=== PATIENT | male | born 1950 | race Caucasian/White ===

== ENCOUNTER → 2017-03-29 | Outpatient (CLI) | payer OTHER ==
[~2017-03-29] VITALS: Ht 182.9 cm; Wt 130.2 kg
== END | disposition home or self-care (01) ==
LOC: Rad HDHVI 10:06
PROVIDERS: ATTEND Internal Medicine Cardiovascular Disease
DX: I25.2 Old myocardial infarction (principal); I25.10 Atherosclerotic heart disease of native coronary artery without angina pectoris; I10 Essential (primary) hypertension; E78.00 Pure hypercholesterolemia, unspecified; I25.5 Ischemic cardiomyopathy; E11.9 Type 2 diabetes mellitus without complications
CPT/HCPCS: 78452; 93017; 96374; A9500

== ENCOUNTER → 2018-01-14 | Outpatient (CLI) | payer OTHER | END | disposition home or self-care (01) | LOC: Rad HDHVI 11:04 | PROVIDERS: ATTEND Internal Medicine Cardiovascular Disease | DX: I20.0 Unstable angina (principal); R07.89 Other chest pain; R00.2 Palpitations | CPT/HCPCS: 93306 ==

== ENCOUNTER → 2018-01-31 | Outpatient (CLI) | payer OTHER ==
[~2018-01-31] VITALS: Ht 182.9 cm; Wt 128.4 kg
== END | disposition home or self-care (01) ==
LOC: Rad HDHVI 10:43
PROVIDERS: ATTEND Internal Medicine Cardiovascular Disease
DX: I20.0 Unstable angina (principal); E11.9 Type 2 diabetes mellitus without complications; R07.89 Other chest pain; R00.2 Palpitations
CPT/HCPCS: 78452; 93017; 96374; A9500

== ENCOUNTER → 2018-02-23 | Outpatient (CLI) | payer OTHER ==
[~2018-02-23] MED LIST: ACET-1158 PO; ASCO500T11 PO; ASPI325T4 PO; CARV3.1240 PO; CHOL50007 PO; DOCU-94 PO; DULA0.5I SC; EMPA1TAB3 PO; ENAL2.5T PO; ESOM20CA PO; EZET10TA6 PO; FOLI1TAB6 PO; GING250C2 PO; GLUC1CAP11 PO; GLUCTAB8 PO; INSUINJ18 SC; KETO2CRE4 TOP; MAGN400T5 PO; MECL-87 PO; MELO1TAB73 PO; METF-370 PO; NAPR220C PO; POM PO; POM TOP; PYRI200T3 PO; ROSU5TAB5 PO; SCOP1DIS4 TD; TRIATAB3 PO; VITATAB PO; [UNRECOGNIZED DRUG - CODE] PO
[2018-02-23 08:00] VITALS: BP 126/66
[2018-02-23 08:50] VITALS: BP 135/72
[2018-02-23 12:47] LABS: Basophils # (auto) 0 uL; Basophils % (auto) 0.6 % (0.0-2.0); Eosinophils # (auto) 0.1 uL; Eosinophils % (auto) 1.4 % (0.0-7.0); Hematocrit 47.7 % (41.0-53.0); Hemoglobin 16.3 g/dL (13.5-17.5); Lymphocytes # (auto) 1.3 uL; Lymphocytes % (auto) 18.9 % (10.0-50.0); Mean Corpuscular Hemoglobin 31.3 pg (28.0-32.0); Mean Corpuscular Hgb Conc. 34.1 g/dL (32.0-36.0); Mean Corpuscular Volume 91.9 fL (80.0-100.0); Monocytes # (auto) 0.6 uL; Monocytes % (auto) 8.8 % (0.0-12.0); Neutrophils # (auto) 4.8 uL; Neutrophils % (auto) 70.3 % (37.0-80.0); Nucleated Red Blood Cells % 0.2 %; Platelet Count (auto) 183 10^3/uL (140-450); Red Blood Cells 5.19 10^6/uL (4.5-5.90); Red Cell Distribution Width 13.9 % (11.8-14.3); White Blood Cell 6.8 10^3/uL (4.4-10.8)
[2018-02-23 13:01] LABS: INR 0.94 (0.9-1.15); Partial Thromboplastin Time 29.9 sec (23.78-33.04); Prothrombin Time 10.1 sec (9.27-12.13)
[2018-02-23 13:12] LABS: BUN/Creatinine Ratio 25.8; Calcium 8.6 mg/dL (8.5-10.1); Potassium 4.5 mmol/L (3.5-5.1)
== END | disposition home or self-care (01) ==
LOC: Rad HDHVI 08:13
PROVIDERS: ATTEND Internal Medicine Cardiovascular Disease
DX: Z01.818 Encounter for other preprocedural examination (principal); I70.0 Atherosclerosis of aorta; I10 Essential (primary) hypertension; D64.9 Anemia, unspecified; R79.1 Abnormal coagulation profile; R94.31 Abnormal electrocardiogram [ECG] [EKG]
CPT/HCPCS: 36415; 71046; 80048; 85025; 85610; 85730; 93005; G0463

== ENCOUNTER 2018-02-24 10:33 | Inpatient (IN) | payer OTHER ==
[~2018-02-24] VITALS: Ht 182.9 cm; Wt 128.6 kg
[2018-02-24] MEDS ORDERED: IODIXANOL 320MG/ML 100ML BTL IV ONE ×2 (11:05→11:44)
[2018-02-24] MEDS ORDERED: LIDOCAINE 2%HCL (LOCAL ANESTH.) INJ 20ML MDV ONE (11:05)
[2018-02-24] MEDS ORDERED: ANGIOMAX 250 MG VIAL IV ONE ×2 (11:13→12:07)
[2018-02-24] MEDS ORDERED: fentaNYL CITRATE 100 MCG/2 ML VL ONE (11:13)
[2018-02-24] MEDS ORDERED: MIDAZOLAM HCL 1MG/1ML-2 ML VIAL ONE (11:13)
[2018-02-24] MEDS ORDERED: SODIUM CHL 0.9% 50 ML ONE ×2 (11:14→12:07)
[2018-02-24] MEDS ORDERED: methylPREDNISolone SOD SUCC 125 MG/2 ML VL ONE (11:17)
[2018-02-24] MEDS ORDERED: diphenhdrAMINE HCL 50 MG/1 ML VL ONE (11:17)
[2018-02-24] MEDS ORDERED: VERAPAMIL 2.5MG/ML INJ 2ML VIAL IV ONE (11:17)
[2018-02-24] MEDS ORDERED: CLOPIDOGREL 300 MG TAB ONE (11:58)
[2018-02-24] MEDS ORDERED: ASPirin 325 MG TAB ONE (11:58)
[2018-02-24] MEDS ORDERED: ONDANSETRON HCL 4 MG/2 ML VIAL IV PRN (12:30)
[2018-02-24] MEDS ORDERED: NITROGLYCERIN 0.4 MG SL TAB SL PRN (12:30)
[2018-02-24] MEDS ORDERED: DEXTROSE (50%) 50ML SYRG IV PRN (12:30)
[2018-02-24] MEDS ORDERED: MORPHINE SULF INJ 2 MG/ML SYRINGE 1ML IV PRN (12:30)
[2018-02-24] MEDS ORDERED: HYDROcodone-ACET 5/325MG TAB PO PRN (12:30)
[2018-02-24] MEDS ORDERED: ACETAMINOPHEN 500 MG TAB PO PRN (12:30)
[2018-02-24 13:55] VITALS: BP_SYST 107; BP_SYST 120; BP_DIAS 65; BP_DIAS 67
[2018-02-24] MEDS ORDERED: INSULIN ASPART PROTAMINE SC SCH (14:00)
[2018-02-24] MEDS ORDERED: ASP SC SCH (14:00)
[2018-02-24 14:18] VITALS: BP 111/68
[2018-02-24 14:54] VITALS: BP 120/65
[2018-02-24 16:00] VITALS: BP 107/62
[2018-02-24] MEDS: ACCU-CHEK COMFORT CURVE STRIP VI SCH ×2 (17:06→21:33)
[2018-02-24] MEDS: InsuLIN REG 1unit/0.01ml Soln (100units/ml) SC SCH ×2 (17:38→21:33)
[2018-02-24] MEDS: DOCUSATE SOD 100 MG CAP PO SCH (21:16)
[2018-02-24] MEDS: CARVEDILOL 3.125 MG TAB PO SCH (21:17)
[2018-02-24] MEDS ORDERED: ATORVASTATIN 20 MG TAB PO SCH (22:00)
[2018-02-24 22:45] VITALS: BP 104/58
[2018-02-25 05:13] VITALS: BP 117/69
[2018-02-25] MEDS: DOCUSATE SOD 100 MG CAP PO SCH ×2 (06:46→14:00)
[2018-02-25] MEDS: InsuLIN REG 1unit/0.01ml Soln (100units/ml) SC SCH ×2 (06:53→11:30)
[2018-02-25] MEDS: ACCU-CHEK COMFORT CURVE STRIP VI SCH ×2 (06:55→11:46)
[2018-02-25 08:38] VITALS: BP 128/67
[2018-02-25] MEDS ORDERED: ENALAPRIL MALEATE 2.5 MG TAB PO SCH (10:00)
[2018-02-25] MEDS ORDERED: MECLIZINE HCL 25 MG TAB PO PRN (10:00)
[2018-02-25] MEDS ORDERED: MAGNESIUM OXIDE 400 MG TAB PO SCH (10:00)
[2018-02-25] MEDS ORDERED: FOLIC ACID 1 MG TAB PO SCH (10:00)
[2018-02-25] MEDS ORDERED: PANTOPRAZOLE 40 MG TAB PO SCH (10:00)
[2018-02-25] MEDS ORDERED: CLOPIDOGREL BISULFATE 75 MG TAB PO SCH (10:00)
[2018-02-25] MEDS ORDERED: Empagliflozin (Jardiance) 25 MG TAB PO SCH (10:00)
[2018-02-25] MEDS ORDERED: CHOLECALCIFEROL (VITD3) 1,000 UNIT TAB PO SCH (10:00)
[2018-02-25] MEDS ORDERED: ASPirin 81 mg TAB PO SCH (10:00)
[2018-02-25] MEDS ORDERED: TRIAMTERENE/HCTZ 37.5/25 MG CAP/TAB PO SCH (10:00)
[2018-02-25] MEDS ORDERED: ASCORBIC ACID 500 MG TAB PO SCH (10:00)
[2018-02-25] MEDS: CARVEDILOL 3.125 MG TAB PO SCH (10:18)
[2018-02-25 12:38] VITALS: BP 119/67
[2018-02-25] MEDS ORDERED: MORPHINE SULFATE 4 MG/ML SYR/VIAL IV PRN (16:00)
[2018-02-25 16:51] VITALS: BP 119/67
== END 2018-02-25 17:45 | disposition home or self-care (01) | DRG 247 ==
LOC: CATH 10:33 → TELE-CENTR 10:34
PROVIDERS: ADMIT Internal Medicine Cardiovascular Disease; ATTEND Internal Medicine Cardiovascular Disease
PROC: 027034Z Dilation of Coronary Artery, One Artery with Drug-eluting Intraluminal Device, Percutaneous Approach (ICD-10-PCS; principal; 2018-02-24)
PROC: 4A023N7 Measurement of Cardiac Sampling and Pressure, Left Heart, Percutaneous Approach (ICD-10-PCS; 2018-02-24)
PROC: B2111ZZ Fluoroscopy of Multiple Coronary Arteries using Low Osmolar Contrast (ICD-10-PCS; 2018-02-24)
PROC: 5A09357 Assistance with Respiratory Ventilation, Less than 24 Consecutive Hours, Continuous Positive Airway Pressure (ICD-10-PCS; 2018-02-24)
DX: I25.10 Atherosclerotic heart disease of native coronary artery without angina pectoris (principal); E11.9 Type 2 diabetes mellitus without complications; I10 Essential (primary) hypertension; E66.9 Obesity, unspecified; E78.5 Hyperlipidemia, unspecified; I25.2 Old myocardial infarction; Z87.891 Personal history of nicotine dependence; Z68.38 Body mass index [BMI] 38.0-38.9, adult
CPT/HCPCS: 82962; 92928; 93458; 94660; 99152; A6257; C1874; J1815; J2250; Q9967

== ENCOUNTER → 2018-04-01 | Outpatient (CLI) | payer OTHER | END | disposition home or self-care (01) | LOC: Rad HDHVI 16:04 | PROVIDERS: ATTEND Internal Medicine Cardiovascular Disease | DX: I20.0 Unstable angina (principal); R06.02 Shortness of breath | CPT/HCPCS: 93306 ==

== ENCOUNTER → 2018-07-27 | Outpatient (CLI) | payer OTHER ==
[~2018-07-27] VITALS: Ht 182.9 cm; Wt 126.1 kg
== END | disposition home or self-care (01) ==
LOC: Rad HDHVI 09:55
PROVIDERS: ATTEND Internal Medicine Cardiovascular Disease
DX: I20.0 Unstable angina (principal); E78.00 Pure hypercholesterolemia, unspecified; E11.9 Type 2 diabetes mellitus without complications
CPT/HCPCS: 78452; 93017; 96374; A9500

== ENCOUNTER → 2020-08-05 | Outpatient (CLI) | payer OTHER ==
[~2020-08-05] MED LIST changes: +CLOP75TA28 PO; -ENAL2.5T PO; +ENAL2.5T7 PO; +EZET10TA22 PO; -EZET10TA6 PO; +INSU100I33 SC; +INSU1INJ21 SC; +MAGN400T40 PO; -MAGN400T5 PO; -MECL-87 PO; +MECL25TA18 PO; +RANO500T2 PO; -SCOP1DIS4 TD; +SCOP1DIS9 TD; +SEMA2INJ2 SC
[2020-08-05 08:28] VITALS: BP 127/60
[2020-08-05 08:43] VITALS: BP 120/63
[2020-08-05 12:11] LABS: Basophils # (auto) 0 10 ^3/uL (0-0.2); Basophils % (auto) 0.4 % (0.0-2.0); Eosinophils # (auto) 0.2 10 ^3/uL (0-0.8); Eosinophils % (auto) 2.5 % (0.0-7.0); Hematocrit 47.6 % (41.0-53.0); Hemoglobin 16.2 g/dL (13.5-17.5); Lymphocytes # (auto) 1.6 10 ^3/uL (0.4-5.4); Mean Corpuscular Hemoglobin 30.6 pg (28.0-32.0); Mean Corpuscular Hgb Conc. 34.1 g/dL (32.0-36.0); Mean Corpuscular Volume 89.8 fL (80.0-100.0); Monocytes # (auto) 0.8 10 ^3/uL (0-1.3); Monocytes % (auto) 10.7 % (0.0-12.0); Neutrophils % (auto) 65.4 % (37.0-80.0); Nucleated Red Blood Cells % 0.2 %; Platelet Count (auto) 215 10^3/uL (140-450); Red Cell Distribution Width 14.3 % (11.8-14.3); White Blood Cell 7.6 10^3/uL (4.4-10.8)
[2020-08-05 12:24] LABS: INR 0.96 (0.9-1.15); Partial Thromboplastin Time 29.1 sec (23.0-31.2)
[2020-08-05 13:15] LABS: BUN/Creatinine Ratio 29.3; Calcium 9.2 mg/dL (8.5-10.1); Potassium 4.6 mmol/L (3.5-5.1)
== END | disposition home or self-care (01) ==
LOC: Rad HDHVI 08:14
PROVIDERS: ATTEND Internal Medicine Cardiovascular Disease
DX: Z01.812 Encounter for preprocedural laboratory examination (principal); R06.02 Shortness of breath; I25.10 Atherosclerotic heart disease of native coronary artery without angina pectoris
CPT/HCPCS: 36415; 71046; 80048; 85025; 85610; 85730; 93005; G0463

== ENCOUNTER 2020-08-08 07:02 | Day surgery (SDC) | payer OTHER ==
[~2020-08-08] VITALS: Ht 180.3 cm; Wt 124.7 kg
[~2020-08-08 07:02] MED LIST changes: -DOCU-94 PO; -DULA0.5I SC; -ESOM20CA PO; -GLUC1CAP11 PO; -INSUINJ18 SC; -MELO1TAB73 PO
[2020-08-08] MEDS ORDERED: LIDOCAINE 2%HCL (LOCAL ANESTH.) INJ 20ML MDV ONE (07:25)
[2020-08-08] MEDS ORDERED: IODIXANOL 320MG/ML 100ML BTL IV ONE (07:25)
[2020-08-08] MEDS ORDERED: fentaNYL CITRATE 100 MCG/2 ML VL ONE (09:10)
[2020-08-08] MEDS ORDERED: diphenhdrAMINE HCL 50 MG/1 ML VL ONE (09:10)
[2020-08-08] MEDS ORDERED: MIDAZOLAM HCL 1MG/1ML-2 ML VIAL ONE (09:10)
[2020-08-08] MEDS ORDERED: methylPREDNISolone SOD SUCC 125 MG/2 ML VL ONE (09:10)
[2020-08-08] MEDS ORDERED: ANGIOMAX 250 MG VIAL IV ONE (09:10)
[2020-08-08] MEDS ORDERED: IOHEXOL 350 MG/ML 100ML IJ ONE ×2 (09:11→09:46)
[2020-08-08] MEDS ORDERED: FAMOTIDINE (10MG/ML) 2ML VL IV ONE (09:11)
[2020-08-08] MEDS ORDERED: SODIUM CHL 0.9% 50 ML ONE (09:11)
== END 2020-08-08 13:45 | disposition home or self-care (01) ==
LOC: CATH 07:02
PROVIDERS: ATTEND Internal Medicine Cardiovascular Disease
DX: I25.10 Atherosclerotic heart disease of native coronary artery without angina pectoris (principal); I10 Essential (primary) hypertension; E78.5 Hyperlipidemia, unspecified; I25.2 Old myocardial infarction; I63.9 Cerebral infarction, unspecified; G47.30 Sleep apnea, unspecified; Z85.46 Personal history of malignant neoplasm of prostate; Z79.82 Long term (current) use of aspirin; Z20.822 Contact with and (suspected) exposure to COVID-19; Z98.890 Other specified postprocedural states; Z79.899 Other long term (current) drug therapy; Z95.5 Presence of coronary angioplasty implant and graft; Z87.891 Personal history of nicotine dependence; Z79.84 Long term (current) use of oral hypoglycemic drugs; Z91.041 Radiographic dye allergy status; Z68.38 Body mass index [BMI] 38.0-38.9, adult
CPT/HCPCS: 93458; C1760; C1769; C1887; C1894; C9600; J0583; J1200; J1644; J2250; J2930; J3010; J3490; J7030; Q9967; U0003; 99152; 99153

== ENCOUNTER → 2020-09-02 | Outpatient (CLI) | payer OTHER ==
[2020-09-02 10:44] VITALS: BP 127/69
[2020-09-02 11:14] VITALS: BP 126/67
== END | disposition home or self-care (01) ==
LOC: CHF HDHVI 09:55
PROVIDERS: ATTEND Internal Medicine Cardiovascular Disease
DX: I25.118 Atherosclerotic heart disease of native coronary artery with other forms of angina pectoris (principal); I50.23 Acute on chronic systolic (congestive) heart failure; E11.9 Type 2 diabetes mellitus without complications; Z95.5 Presence of coronary angioplasty implant and graft
CPT/HCPCS: G0166

== ENCOUNTER → 2020-09-04 | Outpatient (CLI) | payer OTHER ==
[2020-09-04 11:01] VITALS: BP 129/64
[2020-09-04 11:12] VITALS: BP 133/69
== END | disposition home or self-care (01) ==
LOC: CHF HDHVI 09:59
PROVIDERS: ATTEND Internal Medicine Cardiovascular Disease
DX: I25.118 Atherosclerotic heart disease of native coronary artery with other forms of angina pectoris (principal); I11.0 Hypertensive heart disease with heart failure; I50.23 Acute on chronic systolic (congestive) heart failure; E11.42 Type 2 diabetes mellitus with diabetic polyneuropathy; E78.5 Hyperlipidemia, unspecified; Z95.5 Presence of coronary angioplasty implant and graft; Z95.820 Peripheral vascular angioplasty status with implants and grafts
CPT/HCPCS: G0166

== ENCOUNTER → 2020-09-06 | Outpatient (CLI) | payer OTHER ==
[2020-09-06 10:24] VITALS: BP 141/71
[2020-09-06 11:11] VITALS: BP 135/73
== END | disposition home or self-care (01) ==
LOC: CHF HDHVI 09:52
PROVIDERS: ATTEND Internal Medicine Cardiovascular Disease
DX: I25.118 Atherosclerotic heart disease of native coronary artery with other forms of angina pectoris (principal); I50.23 Acute on chronic systolic (congestive) heart failure; E11.9 Type 2 diabetes mellitus without complications; Z98.61 Coronary angioplasty status
CPT/HCPCS: G0166

== ENCOUNTER → 2020-09-09 | Outpatient (CLI) | payer OTHER ==
[2020-09-09 10:40] VITALS: BP 131/67
[2020-09-09 11:17] VITALS: BP 133/68
== END | disposition home or self-care (01) ==
LOC: Rad HDHVI 10:06
PROVIDERS: ATTEND Internal Medicine Cardiovascular Disease
DX: I25.118 Atherosclerotic heart disease of native coronary artery with other forms of angina pectoris (principal); I11.0 Hypertensive heart disease with heart failure; I50.23 Acute on chronic systolic (congestive) heart failure; E11.21 Type 2 diabetes mellitus with diabetic nephropathy; E11.42 Type 2 diabetes mellitus with diabetic polyneuropathy; E78.5 Hyperlipidemia, unspecified; Z95.5 Presence of coronary angioplasty implant and graft
CPT/HCPCS: G0166

== ENCOUNTER → 2020-09-11 | Outpatient (CLI) | payer OTHER ==
[2020-09-11 10:45] VITALS: BP 139/76
[2020-09-11 10:58] VITALS: BP 137/73
== END | disposition home or self-care (01) ==
LOC: Rad HDHVI 09:53
PROVIDERS: ATTEND Internal Medicine Cardiovascular Disease
DX: I25.118 Atherosclerotic heart disease of native coronary artery with other forms of angina pectoris (principal); I11.0 Hypertensive heart disease with heart failure; I50.23 Acute on chronic systolic (congestive) heart failure; I25.5 Ischemic cardiomyopathy; E11.21 Type 2 diabetes mellitus with diabetic nephropathy; E11.42 Type 2 diabetes mellitus with diabetic polyneuropathy; E78.5 Hyperlipidemia, unspecified; Z95.820 Peripheral vascular angioplasty status with implants and grafts; Z95.0 Presence of cardiac pacemaker
CPT/HCPCS: G0166

== ENCOUNTER → 2020-09-18 | Outpatient (CLI) | payer OTHER ==
[2020-09-18 10:35] VITALS: BP 125/66
[2020-09-18 11:09] VITALS: BP 143/73
== END | disposition home or self-care (01) ==
LOC: CHF HDHVI 10:02
PROVIDERS: ATTEND Internal Medicine Cardiovascular Disease
DX: I25.118 Atherosclerotic heart disease of native coronary artery with other forms of angina pectoris (principal); I11.0 Hypertensive heart disease with heart failure; I50.23 Acute on chronic systolic (congestive) heart failure; I25.5 Ischemic cardiomyopathy; E11.21 Type 2 diabetes mellitus with diabetic nephropathy; E11.42 Type 2 diabetes mellitus with diabetic polyneuropathy; E78.5 Hyperlipidemia, unspecified; Z95.5 Presence of coronary angioplasty implant and graft; Z95.820 Peripheral vascular angioplasty status with implants and grafts
CPT/HCPCS: G0166

== ENCOUNTER → 2020-09-20 | Outpatient (CLI) | payer OTHER ==
[2020-09-20 10:53] VITALS: BP 130/84
[2020-09-20 11:06] VITALS: BP 140/74
== END | disposition home or self-care (01) ==
LOC: CHF HDHVI 09:55
PROVIDERS: ATTEND Internal Medicine Cardiovascular Disease
DX: I25.118 Atherosclerotic heart disease of native coronary artery with other forms of angina pectoris (principal); I11.0 Hypertensive heart disease with heart failure; I50.23 Acute on chronic systolic (congestive) heart failure; I25.5 Ischemic cardiomyopathy; E11.21 Type 2 diabetes mellitus with diabetic nephropathy; E11.42 Type 2 diabetes mellitus with diabetic polyneuropathy; E78.5 Hyperlipidemia, unspecified; Z95.820 Peripheral vascular angioplasty status with implants and grafts; Z95.5 Presence of coronary angioplasty implant and graft
CPT/HCPCS: G0166

== ENCOUNTER → 2020-09-23 | Outpatient (CLI) | payer OTHER ==
[2020-09-23 10:34] VITALS: BP 133/70
[2020-09-23 11:16] VITALS: BP 131/73
== END | disposition home or self-care (01) ==
LOC: CHF HDHVI 10:04
PROVIDERS: ATTEND Internal Medicine Cardiovascular Disease
DX: I25.118 Atherosclerotic heart disease of native coronary artery with other forms of angina pectoris (principal); I11.0 Hypertensive heart disease with heart failure; I50.23 Acute on chronic systolic (congestive) heart failure; E11.42 Type 2 diabetes mellitus with diabetic polyneuropathy; E78.5 Hyperlipidemia, unspecified; Z95.820 Peripheral vascular angioplasty status with implants and grafts; Z95.5 Presence of coronary angioplasty implant and graft
CPT/HCPCS: G0166

== ENCOUNTER → 2020-09-25 | Outpatient (CLI) | payer OTHER ==
[2020-09-25 10:33] VITALS: BP 130/70
[2020-09-25 11:06] VITALS: BP 134/70
== END | disposition home or self-care (01) ==
LOC: CHF HDHVI 09:57
PROVIDERS: ATTEND Internal Medicine Cardiovascular Disease
DX: I25.118 Atherosclerotic heart disease of native coronary artery with other forms of angina pectoris (principal); I11.0 Hypertensive heart disease with heart failure; I50.23 Acute on chronic systolic (congestive) heart failure; E78.5 Hyperlipidemia, unspecified; E11.42 Type 2 diabetes mellitus with diabetic polyneuropathy; Z95.5 Presence of coronary angioplasty implant and graft; Z95.820 Peripheral vascular angioplasty status with implants and grafts
CPT/HCPCS: G0166

== ENCOUNTER → 2020-09-30 | Outpatient (CLI) | payer OTHER ==
[2020-09-30 10:43] VITALS: BP 137/71
[2020-09-30 10:56] VITALS: BP 134/77
== END | disposition home or self-care (01) ==
LOC: CHF HDHVI 10:01
PROVIDERS: ATTEND Internal Medicine Cardiovascular Disease
DX: I25.118 Atherosclerotic heart disease of native coronary artery with other forms of angina pectoris (principal); I50.23 Acute on chronic systolic (congestive) heart failure
CPT/HCPCS: G0166

== ENCOUNTER → 2020-10-02 | Outpatient (CLI) | payer OTHER ==
[2020-10-02 10:33] VITALS: BP 124/64
[2020-10-02 11:02] VITALS: BP 128/74
== END | disposition home or self-care (01) ==
LOC: CHF HDHVI 10:00
PROVIDERS: ATTEND Internal Medicine Cardiovascular Disease
DX: I25.118 Atherosclerotic heart disease of native coronary artery with other forms of angina pectoris (principal); I11.0 Hypertensive heart disease with heart failure; I50.23 Acute on chronic systolic (congestive) heart failure; E11.42 Type 2 diabetes mellitus with diabetic polyneuropathy; E11.21 Type 2 diabetes mellitus with diabetic nephropathy; E78.5 Hyperlipidemia, unspecified; Z95.5 Presence of coronary angioplasty implant and graft
CPT/HCPCS: G0166

== ENCOUNTER → 2020-10-04 | Outpatient (CLI) | payer OTHER ==
[2020-10-04 11:01] VITALS: BP 132/62
[2020-10-04 11:12] VITALS: BP 125/68
== END | disposition home or self-care (01) ==
LOC: CHF HDHVI 10:15
PROVIDERS: ATTEND Internal Medicine Cardiovascular Disease
DX: I25.118 Atherosclerotic heart disease of native coronary artery with other forms of angina pectoris (principal); I11.0 Hypertensive heart disease with heart failure; I50.23 Acute on chronic systolic (congestive) heart failure; E11.42 Type 2 diabetes mellitus with diabetic polyneuropathy; E78.5 Hyperlipidemia, unspecified; Z95.5 Presence of coronary angioplasty implant and graft
CPT/HCPCS: G0166

== ENCOUNTER → 2020-10-07 | Outpatient (CLI) | payer OTHER ==
[2020-10-07 10:41] VITALS: BP 131/63
[2020-10-07 11:00] VITALS: BP 144/73
== END | disposition home or self-care (01) ==
LOC: CHF HDHVI 10:03
PROVIDERS: ATTEND Internal Medicine Cardiovascular Disease
DX: I25.118 Atherosclerotic heart disease of native coronary artery with other forms of angina pectoris (principal); I11.0 Hypertensive heart disease with heart failure; I50.23 Acute on chronic systolic (congestive) heart failure; E11.42 Type 2 diabetes mellitus with diabetic polyneuropathy; E11.21 Type 2 diabetes mellitus with diabetic nephropathy; Z95.5 Presence of coronary angioplasty implant and graft
CPT/HCPCS: G0166

== ENCOUNTER → 2020-10-10 | Outpatient (CLI) | payer OTHER ==
[2020-10-10 15:11] VITALS: BP 153/70
[2020-10-10 15:42] VITALS: BP 141/72
== END | disposition home or self-care (01) ==
LOC: CHF HDHVI 14:44
PROVIDERS: ATTEND Internal Medicine Cardiovascular Disease
DX: I25.118 Atherosclerotic heart disease of native coronary artery with other forms of angina pectoris (principal); I11.0 Hypertensive heart disease with heart failure; I50.23 Acute on chronic systolic (congestive) heart failure; E11.42 Type 2 diabetes mellitus with diabetic polyneuropathy; E78.5 Hyperlipidemia, unspecified; Z95.5 Presence of coronary angioplasty implant and graft
CPT/HCPCS: G0166

== ENCOUNTER → 2020-10-11 | Outpatient (CLI) | payer OTHER ==
[2020-10-11 11:03] VITALS: BP 143/75
[2020-10-11 11:38] VITALS: BP 136/76
== END | disposition home or self-care (01) ==
LOC: CHF HDHVI 10:38
PROVIDERS: ATTEND Internal Medicine Cardiovascular Disease
DX: I25.118 Atherosclerotic heart disease of native coronary artery with other forms of angina pectoris (principal); I50.23 Acute on chronic systolic (congestive) heart failure
CPT/HCPCS: G0166

== ENCOUNTER → 2020-10-14 | Outpatient (CLI) | payer OTHER ==
[2020-10-14 10:27] VITALS: BP 139/64
[2020-10-14 10:54] VITALS: BP 132/69
== END | disposition home or self-care (01) ==
LOC: CHF HDHVI 09:55
PROVIDERS: ATTEND Internal Medicine Cardiovascular Disease
DX: I25.118 Atherosclerotic heart disease of native coronary artery with other forms of angina pectoris (principal); I50.23 Acute on chronic systolic (congestive) heart failure
CPT/HCPCS: G0166

== ENCOUNTER → 2020-10-15 | Outpatient (CLI) | payer OTHER ==
[2020-10-15 15:07] VITALS: BP 142/70
[2020-10-15 15:35] VITALS: BP 138/70
== END | disposition home or self-care (01) ==
LOC: CHF HDHVI 14:31
PROVIDERS: ATTEND Internal Medicine Cardiovascular Disease
DX: I25.118 Atherosclerotic heart disease of native coronary artery with other forms of angina pectoris (principal); I50.23 Acute on chronic systolic (congestive) heart failure
CPT/HCPCS: G0166

== ENCOUNTER → 2020-10-23 | Outpatient (CLI) | payer OTHER ==
[2020-10-23 11:11] VITALS: BP 141/66
[2020-10-23 11:38] VITALS: BP 137/67
== END | disposition home or self-care (01) ==
LOC: CHF HDHVI 10:40
PROVIDERS: ATTEND Internal Medicine Cardiovascular Disease
DX: I25.118 Atherosclerotic heart disease of native coronary artery with other forms of angina pectoris (principal); I11.0 Hypertensive heart disease with heart failure; I50.23 Acute on chronic systolic (congestive) heart failure; E11.21 Type 2 diabetes mellitus with diabetic nephropathy; E11.42 Type 2 diabetes mellitus with diabetic polyneuropathy; I25.5 Ischemic cardiomyopathy; E78.5 Hyperlipidemia, unspecified; Z95.5 Presence of coronary angioplasty implant and graft; Z95.820 Peripheral vascular angioplasty status with implants and grafts
CPT/HCPCS: G0166

== ENCOUNTER → 2020-10-24 | Outpatient (CLI) | payer OTHER ==
[2020-10-24 14:38] VITALS: BP 146/69
[2020-10-24 15:11] VITALS: BP 143/71
== END | disposition home or self-care (01) ==
LOC: CHF HDHVI 14:05
PROVIDERS: ATTEND Internal Medicine Cardiovascular Disease
DX: I25.118 Atherosclerotic heart disease of native coronary artery with other forms of angina pectoris (principal); I11.0 Hypertensive heart disease with heart failure; I50.23 Acute on chronic systolic (congestive) heart failure; I25.5 Ischemic cardiomyopathy; E11.21 Type 2 diabetes mellitus with diabetic nephropathy; E11.42 Type 2 diabetes mellitus with diabetic polyneuropathy; E78.5 Hyperlipidemia, unspecified; Z95.5 Presence of coronary angioplasty implant and graft; Z95.820 Peripheral vascular angioplasty status with implants and grafts
CPT/HCPCS: G0166

== ENCOUNTER → 2020-10-25 | Outpatient (CLI) | payer OTHER ==
[2020-10-25 11:07] VITALS: BP 143/73
[2020-10-25 11:40] VITALS: BP 140/73
[2020-10-25 11:54] VITALS: BP 140/73
== END | disposition home or self-care (01) ==
LOC: CHF HDHVI 10:23
PROVIDERS: ATTEND Internal Medicine Cardiovascular Disease
DX: I25.118 Atherosclerotic heart disease of native coronary artery with other forms of angina pectoris (principal); I11.0 Hypertensive heart disease with heart failure; I50.23 Acute on chronic systolic (congestive) heart failure; I25.5 Ischemic cardiomyopathy; E11.42 Type 2 diabetes mellitus with diabetic polyneuropathy; E11.21 Type 2 diabetes mellitus with diabetic nephropathy; E78.5 Hyperlipidemia, unspecified; Z95.5 Presence of coronary angioplasty implant and graft
CPT/HCPCS: G0166

== ENCOUNTER → 2020-10-30 | Outpatient (CLI) | payer OTHER ==
[2020-10-30 10:48] VITALS: BP 129/72
[2020-10-30 11:16] VITALS: BP 137/69
== END | disposition home or self-care (01) ==
LOC: CHF HDHVI 10:08
PROVIDERS: ATTEND Internal Medicine Cardiovascular Disease
DX: I25.118 Atherosclerotic heart disease of native coronary artery with other forms of angina pectoris (principal); I11.0 Hypertensive heart disease with heart failure; I50.23 Acute on chronic systolic (congestive) heart failure; I25.5 Ischemic cardiomyopathy; E11.42 Type 2 diabetes mellitus with diabetic polyneuropathy; E11.21 Type 2 diabetes mellitus with diabetic nephropathy; E78.5 Hyperlipidemia, unspecified; Z95.820 Peripheral vascular angioplasty status with implants and grafts; Z95.5 Presence of coronary angioplasty implant and graft
CPT/HCPCS: G0166

== ENCOUNTER → 2020-11-07 | Outpatient (CLI) | payer OTHER ==
[2020-11-07 16:11] VITALS: BP 140/65
[2020-11-07 16:17] VITALS: BP 156/74
== END | disposition home or self-care (01) ==
LOC: CHF HDHVI 14:43
PROVIDERS: ATTEND Internal Medicine Cardiovascular Disease
DX: I25.118 Atherosclerotic heart disease of native coronary artery with other forms of angina pectoris (principal); I50.23 Acute on chronic systolic (congestive) heart failure
CPT/HCPCS: G0166

== ENCOUNTER → 2020-11-08 | Outpatient (CLI) | payer OTHER ==
[2020-11-08 11:02] VITALS: BP 127/64
[2020-11-08 11:34] VITALS: BP 134/66
== END | disposition home or self-care (01) ==
LOC: CHF HDHVI 10:21
PROVIDERS: ATTEND Internal Medicine Cardiovascular Disease
DX: I25.118 Atherosclerotic heart disease of native coronary artery with other forms of angina pectoris (principal); I50.23 Acute on chronic systolic (congestive) heart failure
CPT/HCPCS: G0166

== ENCOUNTER → 2020-11-12 | Outpatient (CLI) | payer OTHER ==
[2020-11-12 16:18] VITALS: BP 141/70
[2020-11-12 16:25] VITALS: BP 136/79
== END | disposition home or self-care (01) ==
LOC: CHF HDHVI 14:26
PROVIDERS: ATTEND Internal Medicine Cardiovascular Disease
DX: I25.118 Atherosclerotic heart disease of native coronary artery with other forms of angina pectoris (principal); I50.23 Acute on chronic systolic (congestive) heart failure
CPT/HCPCS: G0166

== ENCOUNTER → 2020-11-14 | Outpatient (CLI) | payer OTHER ==
[2020-11-14 16:19] VITALS: BP 136/67
[2020-11-14 16:28] VITALS: BP 131/71
== END | disposition home or self-care (01) ==
LOC: CHF HDHVI 14:54
PROVIDERS: ATTEND Internal Medicine Cardiovascular Disease
DX: I25.118 Atherosclerotic heart disease of native coronary artery with other forms of angina pectoris (principal); I50.23 Acute on chronic systolic (congestive) heart failure
CPT/HCPCS: G0166

== ENCOUNTER → 2022-01-26 | Outpatient (CLI) | payer OTHER ==
[~2022-01-26] VITALS: Ht 182.9 cm; Wt 122.9 kg
== END | disposition home or self-care (01) ==
LOC: Rad HDHVI 07:51
PROVIDERS: ATTEND Internal Medicine Cardiovascular Disease
DX: I25.10 Atherosclerotic heart disease of native coronary artery without angina pectoris (principal); I11.0 Hypertensive heart disease with heart failure; I50.23 Acute on chronic systolic (congestive) heart failure; R07.9 Chest pain, unspecified; I25.5 Ischemic cardiomyopathy; E78.5 Hyperlipidemia, unspecified; R06.02 Shortness of breath; E11.9 Type 2 diabetes mellitus without complications; E66.9 Obesity, unspecified
CPT/HCPCS: 78452; 93017; 96374; A9500

== ENCOUNTER 2022-02-12 16:39 | Inpatient (IN) | payer MEDICARE, OTHER ==
[~2022-02-12] VITALS: Ht 188 cm; Wt 124.6 kg
[2022-02-12 17:50] LABS: Basophils # (auto) 0 10 ^3/uL (0-0.2); Basophils % (auto) 0.6 % (0.0-2.0); Eosinophils # (auto) 0.2 10 ^3/uL (0-0.8); Eosinophils % (auto) 2.2 % (0.0-7.0); Hematocrit 51.9 % (41.0-53.0); Hemoglobin 16.9 g/dL (13.5-17.5); Lymphocytes # (auto) 1.9 10 ^3/uL (0.4-5.4); Lymphocytes % (auto) 24.2 % (10.0-50.0); Mean Corpuscular Hemoglobin 29.6 pg (28.0-32.0); Mean Corpuscular Hgb Conc. 32.6 g/dL (32.0-36.0); Mean Corpuscular Volume 90.7 fL (80.0-100.0); Monocytes # (auto) 0.8 10 ^3/uL (0-1.3); Monocytes % (auto) 9.5 % (0.0-12.0); Neutrophils # (auto) 5.1 10 ^3/uL (1.6-8.6); Neutrophils % (auto) 63.5 % (37.0-80.0); Nucleated Red Blood Cells % 0.1 %; Red Blood Cells 5.72 10^6/uL (4.5-5.90); Red Cell Distribution Width 14.1 % (11.8-14.3)
[2022-02-12 18:07] LABS: Albumin 3.9 g/dL (3.4-5.0); BUN/Creatinine Ratio 22.6; Calcium 8.6 mg/dL (8.5-10.1); Potassium 4.5 mmol/L (3.5-5.1)
[2022-02-12 18:10] LABS: Bilirubin, Total 0.4 mg/dL (0.2-1.0)
[2022-02-12] MEDS ORDERED: ASPirin 325 MG TAB PO ONE (18:45)
[2022-02-12] MEDS ORDERED: ACETAMINOPHEN 325 MG TAB PO PRN (19:45)
[2022-02-12] MEDS ORDERED: DEXTROSE (50%) 50ML SYRG IV PRN (19:45)
[2022-02-12] MEDS: InsuLIN REG 1unit/0.01ml Soln (100units/ml) SC SCH (22:00)
[2022-02-12] MEDS: ISOSORBIDE MONONITRATE ER 60 MG TAB PO SCH (22:01)
[2022-02-12] MEDS: CARVEDILOL 3.125 MG TAB PO SCH (22:02)
[2022-02-12] MEDS: MAGNESIUM OXIDE 400 MG TAB PO SCH (22:02)
[2022-02-12] MEDS: ENALAPRIL MALEATE 10 MG TAB PO SCH (22:02)
[2022-02-12] MEDS: ACCU-CHEK COMFORT CURVE STRIP VI SCH (22:02)
[2022-02-12] MEDS: INSULIN LANTUS (GLARGINE) 1 /0.01ml (100units/ml) SC SCH (22:04)
[2022-02-13] VITALS (8 sets, daily range): BP systolic 97–115; BP diastolic 46–72
[2022-02-13 06:02] LABS: Urine Bacteria NONE SEEN /hpf (None Seen); Urine Blood Negative /uL (Negative); Urine Specific Gravity 1.024 (1.001-1.035); Urine WBC 1 /hpf (0 - 3)
[2022-02-13 06:04] LABS: Alcohol, Urine < 3.0 mg/dL (0-10); Amphetamine Screen, Urine NEGATIVE (NEGATIVE); Barbiturate Scree,Urine NEGATIVE (NEGATIVE); Benzodiazephine Screen, Urine NEGATIVE (NEGATIVE); Cannabinoid Screen, Urine NEGATIVE (NEGATIVE); Cocaine Screen, Urine NEGATIVE (NEGATIVE); Opiate Scree,Urine NEGATIVE (NEGATIVE); Phencyclidine Screen, Urine NEGATIVE (NEGATIVE)
[2022-02-13] MEDS: InsuLIN REG 1unit/0.01ml Soln (100units/ml) SC SCH ×4 (07:00→22:02)
[2022-02-13] MEDS: INSULIN LANTUS (GLARGINE) 1 /0.01ml (100units/ml) SC SCH ×2 (07:00→22:03)
[2022-02-13] MEDS: ACCU-CHEK COMFORT CURVE STRIP VI SCH ×4 (07:00→21:57)
[2022-02-13] MEDS: ISOSORBIDE MONONITRATE ER 60 MG TAB PO SCH ×2 (09:06→22:00)
[2022-02-13] MEDS: DAPAGLIFLOZIN 5 MG TAB PO SCH (09:07)
[2022-02-13] MEDS: ENALAPRIL MALEATE 10 MG TAB PO SCH ×2 (09:07→22:00)
[2022-02-13] MEDS: MAGNESIUM OXIDE 400 MG TAB PO SCH ×2 (09:07→22:04)
[2022-02-13] MEDS: CARVEDILOL 3.125 MG TAB PO SCH ×2 (09:07→22:00)
[2022-02-13] MEDS: ATORVASTATIN 20 MG TAB PO SCH (09:07)
[2022-02-13] MEDS ORDERED: CLOPIDOGREL BISULFATE 75 MG TAB PO SCH (10:00)
[2022-02-13 10:09] LABS: INR 1.02 (0.9-1.15); Partial Thromboplastin Time 27.5 sec (24.6-33.4)
[2022-02-13] MEDS ORDERED: LIDOCAINE 2%HCL (LOCAL ANESTH.) INJ 20ML MDV ONE (14:52)
[2022-02-13] MEDS ORDERED: IOHEXOL 350 MG/ML 100ML IJ ONE ×2 (14:52→15:36)
[2022-02-13] MEDS ORDERED: fentaNYL CITRATE 100 MCG/2 ML VL ONE (14:58)
[2022-02-13] MEDS ORDERED: MIDAZOLAM HCL 2MG/2ML 2ml VIAL (1mg/ml) ONE (14:58)
[2022-02-13] MEDS ORDERED: ANGIOMAX 250 MG VIAL IV ONE ×2 (14:58→15:34)
[2022-02-13] MEDS ORDERED: SODIUM CHL 0.9% 50 ML ONE ×2 (14:58→15:34)
[2022-02-13] MEDS ORDERED: methylPREDNISolone SOD SUCC 125 MG/2 ML VL ONE (14:59)
[2022-02-13] MEDS ORDERED: ATROPINE SULF 1 MG/10ml SYR ONE (15:12)
[2022-02-13] MEDS ORDERED: DOPamine 1600MCG/ML D5W 0 ML IV ONE (15:20)
[2022-02-13] MEDS ORDERED: TICAGRELOR 90 MG TAB ONE (15:45)
[2022-02-13] MEDS: TICAGRELOR 90 MG TAB PO SCH (22:21)
[2022-02-14 05:00] VITALS: BP 127/82
[2022-02-14] MEDS: ACCU-CHEK COMFORT CURVE STRIP VI SCH ×2 (06:16→11:53)
[2022-02-14] MEDS: InsuLIN REG 1unit/0.01ml Soln (100units/ml) SC SCH ×2 (06:18→11:50)
[2022-02-14] MEDS: INSULIN LANTUS (GLARGINE) 1 /0.01ml (100units/ml) SC SCH (06:20)
[2022-02-14 08:30] VITALS: BP 138/69
[2022-02-14] MEDS: TICAGRELOR 90 MG TAB PO SCH (09:04)
[2022-02-14] MEDS: MAGNESIUM OXIDE 400 MG TAB PO SCH (09:05)
[2022-02-14] MEDS: ISOSORBIDE MONONITRATE ER 60 MG TAB PO SCH (09:05)
[2022-02-14] MEDS: DAPAGLIFLOZIN 5 MG TAB PO SCH (09:05)
[2022-02-14] MEDS: CARVEDILOL 3.125 MG TAB PO SCH (09:05)
[2022-02-14] MEDS: ATORVASTATIN 20 MG TAB PO SCH (09:07)
[2022-02-14] MEDS: ENALAPRIL MALEATE 10 MG TAB PO SCH (09:07)
[2022-02-14 12:30] VITALS: BP 124/61
== END 2022-02-14 12:52 | disposition home or self-care (01) | DRG 246 ==
LOC: ER 16:39 → TELE 19:55 → TELE-EAST 02-13 17:08
PROVIDERS: ADMIT Internal Medicine Cardiovascular Disease; ATTEND Internal Medicine Cardiovascular Disease
PROC: 4A023N7 Measurement of Cardiac Sampling and Pressure, Left Heart, Percutaneous Approach (ICD-10-PCS; principal; 2022-02-13)
PROC: 027237Z Dilation of Coronary Artery, Three Arteries with Four or More Drug-eluting Intraluminal Devices, Percutaneous Approach (ICD-10-PCS; 2022-02-13)
PROC: B2111ZZ Fluoroscopy of Multiple Coronary Arteries using Low Osmolar Contrast (ICD-10-PCS; 2022-02-13)
PROC: B2151ZZ Fluoroscopy of Left Heart using Low Osmolar Contrast (ICD-10-PCS; 2022-02-13)
PROC: B240ZZ3 Ultrasonography of Single Coronary Artery, Intravascular (ICD-10-PCS; 2022-02-13)
DX: I21.4 Non-ST elevation (NSTEMI) myocardial infarction (principal); I50.23 Acute on chronic systolic (congestive) heart failure; E11.21 Type 2 diabetes mellitus with diabetic nephropathy; Z20.822 Contact with and (suspected) exposure to COVID-19; E11.319 Type 2 diabetes mellitus with unspecified diabetic retinopathy without macular edema; E11.40 Type 2 diabetes mellitus with diabetic neuropathy, unspecified; I11.0 Hypertensive heart disease with heart failure; I25.10 Atherosclerotic heart disease of native coronary artery without angina pectoris; I25.5 Ischemic cardiomyopathy; J44.9 Chronic obstructive pulmonary disease, unspecified; Z79.01 Long term (current) use of anticoagulants; Z88.8 Allergy status to other drugs, medicaments and biological substances
CPT/HCPCS: 36415; 71045; 80053; 80307; 81001; 82962; 84484; 85025; 85610; 85730; 87086; 92928; 92978; 93005; 93458; 96372; 99152; 99153; 99291; C1874; G0378; J1815; J2250

== ENCOUNTER → 2022-05-19 | Outpatient (CLI) | payer OTHER | END | disposition home or self-care (01) | LOC: Rad HDHVI 10:58 | PROVIDERS: ATTEND Internal Medicine Cardiovascular Disease | DX: I08.0 Rheumatic disorders of both mitral and aortic valves (principal); R06.02 Shortness of breath; I11.9 Hypertensive heart disease without heart failure | CPT/HCPCS: 93306 ==

== ENCOUNTER → 2022-12-01 | Outpatient (CLI) | payer OTHER ==
[~2022-12-01] MED LIST changes: -ACET-1158 PO; +ACET500T58 PO; +ENAL1TAB42 PO; -ENAL2.5T7 PO; +FOLI-119 PO; -FOLI1TAB6 PO; +MECL1TAB32 PO; -MECL25TA18 PO
== END | disposition home or self-care (01) ==
LOC: Rad HDHVI 09:01
PROVIDERS: ATTEND Internal Medicine Cardiovascular Disease
DX: I08.3 Combined rheumatic disorders of mitral, aortic and tricuspid valves (principal); I10 Essential (primary) hypertension; R06.02 Shortness of breath
CPT/HCPCS: 93306

== ENCOUNTER → 2023-06-08 | Outpatient (CLI) | payer OTHER ==
[2023-06-08 15:44] VITALS: BP 126/71; PULSE 71
[2023-06-08 15:45] VITALS: BP 119/69; PULSE 75
== END | disposition home or self-care (01) ==
LOC: CHF HDHVI 09:44
PROVIDERS: ATTEND Internal Medicine Cardiovascular Disease
DX: I11.0 Hypertensive heart disease with heart failure (principal); I50.43 Acute on chronic combined systolic (congestive) and diastolic (congestive) heart failure; I25.118 Atherosclerotic heart disease of native coronary artery with other forms of angina pectoris; E78.00 Pure hypercholesterolemia, unspecified; Z98.61 Coronary angioplasty status
CPT/HCPCS: G0166

== ENCOUNTER → 2023-06-09 | Outpatient (CLI) | payer OTHER ==
[2023-06-09 16:19] VITALS: BP 126/71; PULSE 80
[2023-06-09 16:20] VITALS: BP 119/68; PULSE 71
== END | disposition home or self-care (01) ==
LOC: CHF HDHVI 14:22
PROVIDERS: ATTEND Internal Medicine Cardiovascular Disease
DX: I11.0 Hypertensive heart disease with heart failure (principal); I50.43 Acute on chronic combined systolic (congestive) and diastolic (congestive) heart failure; I25.118 Atherosclerotic heart disease of native coronary artery with other forms of angina pectoris; E78.00 Pure hypercholesterolemia, unspecified; Z98.61 Coronary angioplasty status
CPT/HCPCS: G0166

== ENCOUNTER → 2023-06-11 | Outpatient (CLI) | payer OTHER ==
[2023-06-11 11:34] VITALS: BP 130/76; PULSE 79
[2023-06-11 11:35] VITALS: BP 131/84; PULSE 81
== END | disposition home or self-care (01) ==
LOC: CHF HDHVI 10:02
PROVIDERS: ATTEND Internal Medicine Cardiovascular Disease
DX: I25.118 Atherosclerotic heart disease of native coronary artery with other forms of angina pectoris (principal); I11.0 Hypertensive heart disease with heart failure; I50.43 Acute on chronic combined systolic (congestive) and diastolic (congestive) heart failure; E78.00 Pure hypercholesterolemia, unspecified; Z98.61 Coronary angioplasty status; Z79.82 Long term (current) use of aspirin; Z79.899 Other long term (current) drug therapy
CPT/HCPCS: G0166

== ENCOUNTER → 2023-06-17 | Outpatient (CLI) | payer OTHER ==
[2023-06-17 15:22] VITALS: BP 129/76; PULSE 79
[2023-06-17 15:23] VITALS: BP 119/69; PULSE 84
== END | disposition home or self-care (01) ==
LOC: CHF HDHVI 13:04
PROVIDERS: ATTEND Internal Medicine Cardiovascular Disease
DX: I25.118 Atherosclerotic heart disease of native coronary artery with other forms of angina pectoris (principal); I11.0 Hypertensive heart disease with heart failure; I50.43 Acute on chronic combined systolic (congestive) and diastolic (congestive) heart failure; E78.00 Pure hypercholesterolemia, unspecified; Z98.61 Coronary angioplasty status
CPT/HCPCS: G0166

== ENCOUNTER → 2023-06-23 | Outpatient (CLI) | payer OTHER ==
[2023-06-23 13:13] VITALS: BP 128/77; PULSE 75
[2023-06-23 13:14] VITALS: BP 123/86; PULSE 77
== END | disposition home or self-care (01) ==
LOC: CHF HDHVI 10:15
PROVIDERS: ATTEND Internal Medicine Cardiovascular Disease
DX: I25.118 Atherosclerotic heart disease of native coronary artery with other forms of angina pectoris (principal); I11.0 Hypertensive heart disease with heart failure; I50.43 Acute on chronic combined systolic (congestive) and diastolic (congestive) heart failure; E78.00 Pure hypercholesterolemia, unspecified; Z98.61 Coronary angioplasty status; Z79.899 Other long term (current) drug therapy
CPT/HCPCS: G0166

== ENCOUNTER → 2023-06-24 | Outpatient (CLI) | payer OTHER ==
[2023-06-24 15:10] VITALS: BP 126/81; PULSE 86
[2023-06-24 15:14] VITALS: BP 124/80; PULSE 81
== END | disposition home or self-care (01) ==
LOC: CHF HDHVI 13:01
PROVIDERS: ATTEND Internal Medicine Cardiovascular Disease
DX: I25.118 Atherosclerotic heart disease of native coronary artery with other forms of angina pectoris (principal); E11.9 Type 2 diabetes mellitus without complications; I11.0 Hypertensive heart disease with heart failure; I50.43 Acute on chronic combined systolic (congestive) and diastolic (congestive) heart failure; E78.00 Pure hypercholesterolemia, unspecified; Z79.82 Long term (current) use of aspirin; Z79.84 Long term (current) use of oral hypoglycemic drugs; Z79.899 Other long term (current) drug therapy; Z98.61 Coronary angioplasty status; Z88.8 Allergy status to other drugs, medicaments and biological substances
CPT/HCPCS: G0166

== ENCOUNTER → 2023-06-29 | Outpatient (CLI) | payer OTHER ==
[2023-06-29 14:20] VITALS: BP 124/76; PULSE 83
[2023-06-29 14:30] VITALS: BP 128/88; PULSE 84
== END | disposition home or self-care (01) ==
LOC: CHF HDHVI 13:09
PROVIDERS: ATTEND Internal Medicine Cardiovascular Disease
DX: I11.0 Hypertensive heart disease with heart failure (principal); I50.43 Acute on chronic combined systolic (congestive) and diastolic (congestive) heart failure; I25.118 Atherosclerotic heart disease of native coronary artery with other forms of angina pectoris; E78.00 Pure hypercholesterolemia, unspecified; Z98.61 Coronary angioplasty status
CPT/HCPCS: G0166

== ENCOUNTER → 2023-07-01 | Outpatient (CLI) | payer OTHER ==
[2023-07-01 14:49] VITALS: BP_SYST 119; BP_SYST 126; BP_DIAS 70; BP_DIAS 78; PULSE 89; PULSE 91
== END | disposition home or self-care (01) ==
LOC: CHF HDHVI 13:02
PROVIDERS: ATTEND Internal Medicine Cardiovascular Disease
DX: I25.118 Atherosclerotic heart disease of native coronary artery with other forms of angina pectoris (principal); E11.9 Type 2 diabetes mellitus without complications; I11.0 Hypertensive heart disease with heart failure; I50.43 Acute on chronic combined systolic (congestive) and diastolic (congestive) heart failure; E78.00 Pure hypercholesterolemia, unspecified; Z79.899 Other long term (current) drug therapy; Z98.61 Coronary angioplasty status; Z88.8 Allergy status to other drugs, medicaments and biological substances
CPT/HCPCS: G0166

== ENCOUNTER → 2023-07-06 | Outpatient (CLI) | payer OTHER ==
[2023-07-06 14:31] VITALS: BP 126/76; PULSE 85
[2023-07-06 14:32] VITALS: BP 125/70; PULSE 83
== END | disposition home or self-care (01) ==
LOC: CHF HDHVI 13:04
PROVIDERS: ATTEND Internal Medicine Cardiovascular Disease
DX: I11.0 Hypertensive heart disease with heart failure (principal); I50.43 Acute on chronic combined systolic (congestive) and diastolic (congestive) heart failure; I25.118 Atherosclerotic heart disease of native coronary artery with other forms of angina pectoris; E78.00 Pure hypercholesterolemia, unspecified; Z98.61 Coronary angioplasty status
CPT/HCPCS: G0166

== ENCOUNTER → 2023-07-07 | Outpatient (CLI) | payer OTHER ==
[2023-07-07 14:25] VITALS: BP 130/70; PULSE 84
[2023-07-07 14:26] VITALS: BP 125/75; PULSE 79
== END | disposition home or self-care (01) ==
LOC: CHF HDHVI 13:11
PROVIDERS: ATTEND Internal Medicine Cardiovascular Disease
DX: I11.0 Hypertensive heart disease with heart failure (principal); I50.43 Acute on chronic combined systolic (congestive) and diastolic (congestive) heart failure; I25.118 Atherosclerotic heart disease of native coronary artery with other forms of angina pectoris; E78.00 Pure hypercholesterolemia, unspecified; Z98.61 Coronary angioplasty status
CPT/HCPCS: G0166

== ENCOUNTER → 2023-07-09 | Outpatient (CLI) | payer OTHER ==
[2023-07-09 15:37] VITALS: BP 132/80; PULSE 77
[2023-07-09 15:40] VITALS: BP 121/71; PULSE 78
== END | disposition home or self-care (01) ==
LOC: CHF HDHVI 14:02
PROVIDERS: ATTEND Internal Medicine Cardiovascular Disease
DX: I11.0 Hypertensive heart disease with heart failure (principal); I50.43 Acute on chronic combined systolic (congestive) and diastolic (congestive) heart failure; I25.118 Atherosclerotic heart disease of native coronary artery with other forms of angina pectoris; E78.00 Pure hypercholesterolemia, unspecified; Z98.61 Coronary angioplasty status
CPT/HCPCS: G0166

== ENCOUNTER → 2023-07-13 | Outpatient (CLI) | payer OTHER ==
[2023-07-13 15:57] VITALS: BP 130/80; PULSE 83
[2023-07-13 15:58] VITALS: BP 124/82; PULSE 84
== END | disposition home or self-care (01) ==
LOC: CHF HDHVI 14:10
PROVIDERS: ATTEND Internal Medicine Cardiovascular Disease
DX: I11.0 Hypertensive heart disease with heart failure (principal); I50.43 Acute on chronic combined systolic (congestive) and diastolic (congestive) heart failure; I25.118 Atherosclerotic heart disease of native coronary artery with other forms of angina pectoris; E78.00 Pure hypercholesterolemia, unspecified; Z98.61 Coronary angioplasty status
CPT/HCPCS: G0166

== ENCOUNTER → 2023-07-14 | Outpatient (CLI) | payer OTHER ==
[2023-07-14 14:31] VITALS: BP 124/76; PULSE 77
[2023-07-14 14:32] VITALS: BP 119/68; PULSE 85
== END | disposition home or self-care (01) ==
LOC: CHF HDHVI 13:01
PROVIDERS: ATTEND Internal Medicine Cardiovascular Disease
DX: I25.118 Atherosclerotic heart disease of native coronary artery with other forms of angina pectoris (principal); E11.9 Type 2 diabetes mellitus without complications; I11.0 Hypertensive heart disease with heart failure; I50.43 Acute on chronic combined systolic (congestive) and diastolic (congestive) heart failure; E78.00 Pure hypercholesterolemia, unspecified; Z98.61 Coronary angioplasty status; Z79.899 Other long term (current) drug therapy
CPT/HCPCS: G0166

== ENCOUNTER → 2023-07-15 | Outpatient (CLI) | payer OTHER ==
[2023-07-15 14:16] VITALS: BP 121/70; PULSE 84
[2023-07-15 14:21] VITALS: BP 126/75; PULSE 83
== END | disposition home or self-care (01) ==
LOC: CHF HDHVI 13:01
PROVIDERS: ATTEND Internal Medicine Cardiovascular Disease
DX: I11.0 Hypertensive heart disease with heart failure (principal); I50.43 Acute on chronic combined systolic (congestive) and diastolic (congestive) heart failure; I25.118 Atherosclerotic heart disease of native coronary artery with other forms of angina pectoris; E78.00 Pure hypercholesterolemia, unspecified; Z98.61 Coronary angioplasty status
CPT/HCPCS: G0166

== ENCOUNTER → 2023-07-22 | Outpatient (CLI) | payer OTHER ==
[2023-07-22 14:55] VITALS: BP 123/68; PULSE 79
[2023-07-22 14:57] VITALS: BP 124/75; PULSE 78
== END | disposition home or self-care (01) ==
LOC: CHF HDHVI 13:02
PROVIDERS: ATTEND Internal Medicine Cardiovascular Disease
DX: I25.118 Atherosclerotic heart disease of native coronary artery with other forms of angina pectoris (principal); I11.0 Hypertensive heart disease with heart failure; I50.43 Acute on chronic combined systolic (congestive) and diastolic (congestive) heart failure; E78.00 Pure hypercholesterolemia, unspecified; Z98.61 Coronary angioplasty status
CPT/HCPCS: G0166

== ENCOUNTER → 2023-07-23 | Outpatient (CLI) | payer OTHER ==
[2023-07-23 14:46] VITALS: BP_SYST 119; BP_SYST 123; BP_DIAS 70; BP_DIAS 79; PULSE 76
== END | disposition home or self-care (01) ==
LOC: CHF HDHVI 12:54
PROVIDERS: ATTEND Internal Medicine Cardiovascular Disease
DX: I11.0 Hypertensive heart disease with heart failure (principal); I50.43 Acute on chronic combined systolic (congestive) and diastolic (congestive) heart failure; I25.118 Atherosclerotic heart disease of native coronary artery with other forms of angina pectoris; E78.00 Pure hypercholesterolemia, unspecified; Z98.61 Coronary angioplasty status
CPT/HCPCS: G0166

== ENCOUNTER → 2023-07-29 | Outpatient (CLI) | payer OTHER ==
[2023-07-29 16:14] VITALS: BP 124/74; PULSE 73
[2023-07-29 16:15] VITALS: BP 119/64; PULSE 78
== END | disposition home or self-care (01) ==
LOC: CHF HDHVI 13:03
PROVIDERS: ATTEND Internal Medicine Cardiovascular Disease
DX: I25.118 Atherosclerotic heart disease of native coronary artery with other forms of angina pectoris (principal); I11.0 Hypertensive heart disease with heart failure; I50.43 Acute on chronic combined systolic (congestive) and diastolic (congestive) heart failure; E78.00 Pure hypercholesterolemia, unspecified; Z98.61 Coronary angioplasty status
CPT/HCPCS: G0166

== ENCOUNTER → 2023-08-03 | Outpatient (CLI) | payer OTHER ==
[2023-08-03 15:40] VITALS: BP 124/78; PULSE 78
[2023-08-03 15:41] VITALS: BP 121/68; PULSE 75
== END | disposition home or self-care (01) ==
LOC: CHF HDHVI 13:55
PROVIDERS: ATTEND Internal Medicine Cardiovascular Disease
DX: I11.0 Hypertensive heart disease with heart failure (principal); I50.43 Acute on chronic combined systolic (congestive) and diastolic (congestive) heart failure; I25.118 Atherosclerotic heart disease of native coronary artery with other forms of angina pectoris; E78.00 Pure hypercholesterolemia, unspecified; Z98.61 Coronary angioplasty status
CPT/HCPCS: G0166

== ENCOUNTER → 2023-08-04 | Outpatient (CLI) | payer OTHER ==
[2023-08-04 16:16] VITALS: BP 124/87; PULSE 60
[2023-08-04 16:18] VITALS: BP 121/70; PULSE 72
== END | disposition home or self-care (01) ==
LOC: CHF HDHVI 13:53
PROVIDERS: ATTEND Internal Medicine Cardiovascular Disease
DX: I25.118 Atherosclerotic heart disease of native coronary artery with other forms of angina pectoris (principal); I50.43 Acute on chronic combined systolic (congestive) and diastolic (congestive) heart failure; I10 Essential (primary) hypertension; E78.00 Pure hypercholesterolemia, unspecified; Z98.61 Coronary angioplasty status
CPT/HCPCS: G0166

== ENCOUNTER → 2023-08-17 | Outpatient (CLI) | payer OTHER ==
[2023-08-17 13:35] VITALS: BP 123/74; PULSE 72
[2023-08-17 14:19] VITALS: BP 119/68; PULSE 78
== END | disposition home or self-care (01) ==
LOC: CHF HDHVI 13:06
PROVIDERS: ATTEND Internal Medicine Cardiovascular Disease
DX: I11.0 Hypertensive heart disease with heart failure (principal); I50.43 Acute on chronic combined systolic (congestive) and diastolic (congestive) heart failure; I25.118 Atherosclerotic heart disease of native coronary artery with other forms of angina pectoris; E78.00 Pure hypercholesterolemia, unspecified; Z98.61 Coronary angioplasty status
CPT/HCPCS: G0166

== ENCOUNTER → 2023-08-19 | Outpatient (CLI) | payer OTHER ==
[2023-08-19 14:55] VITALS: BP 125/68; PULSE 71
[2023-08-19 15:05] VITALS: BP 121/65; PULSE 77
[2023-08-19 15:07] VITALS: BP 121/65; PULSE 77
== END | disposition home or self-care (01) ==
LOC: CHF HDHVI 13:02
PROVIDERS: ATTEND Internal Medicine Cardiovascular Disease
DX: I25.118 Atherosclerotic heart disease of native coronary artery with other forms of angina pectoris (principal); I11.0 Hypertensive heart disease with heart failure; I50.43 Acute on chronic combined systolic (congestive) and diastolic (congestive) heart failure; E78.00 Pure hypercholesterolemia, unspecified; Z98.61 Coronary angioplasty status
CPT/HCPCS: G0166

== ENCOUNTER → 2023-08-26 | Outpatient (CLI) | payer OTHER ==
[~2023-08-26] MED LIST changes: -ASPI325T4 PO; +ASPI325T6 PO; +MECL-90 PO; -MECL1TAB32 PO
[2023-08-26 15:56] VITALS: BP_SYST 116; BP_SYST 129; BP_DIAS 62; BP_DIAS 68; PULSE 66; PULSE 69
== END | disposition home or self-care (01) ==
LOC: CHF HDHVI 13:04
PROVIDERS: ATTEND Internal Medicine Cardiovascular Disease
DX: I11.0 Hypertensive heart disease with heart failure (principal); I50.43 Acute on chronic combined systolic (congestive) and diastolic (congestive) heart failure; I25.118 Atherosclerotic heart disease of native coronary artery with other forms of angina pectoris; E78.00 Pure hypercholesterolemia, unspecified; Z98.61 Coronary angioplasty status
CPT/HCPCS: G0166

== ENCOUNTER → 2023-11-15 | Outpatient (CLI) | payer OTHER | END | disposition home or self-care (01) | LOC: Rad HDHVI 13:01 | PROVIDERS: ATTEND Internal Medicine Cardiovascular Disease | DX: I08.0 Rheumatic disorders of both mitral and aortic valves (principal); R06.02 Shortness of breath | CPT/HCPCS: 93306 ==

== ENCOUNTER → 2024-08-22 | Outpatient (CLI) | payer OTHER ==
[~2024-08-22] MED LIST changes: +ASPI-543 PO; +DOCU-94 PO; +DULA0.5I SC; +INSU1INJ30 SC; +NITR0.4S29 SL; +POM; +POM SL; +TICA1TAB PO; +TIRZ12.5 SC; +VERI2.5T PO
[2024-08-22 12:00] VITALS: BP 120/58; PULSE 68; RESP 16; O2SAT 99
[2024-08-22 12:15] VITALS: BP 118/56; PULSE 63; RESP 16; O2SAT 99
== END | disposition home or self-care (01) ==
LOC: CHF HDHVI 12:01
PROVIDERS: ATTEND Internal Medicine Cardiovascular Disease
DX: Z01.810 Encounter for preprocedural cardiovascular examination (principal); R07.89 Other chest pain
CPT/HCPCS: 93005; G0463

== ENCOUNTER 2024-08-29 06:50 | Day surgery (SDC) | payer OTHER ==
[2024-08-22 14:29] LABS: Basophils # (auto) 0.1 10 ^3/uL (0-0.2); Basophils % (auto) 0.7 % (0.0-2.0); Eosinophils # (auto) 0.3 10 ^3/uL (0-0.8); Eosinophils % (auto) 2.9 % (0.0-7.0); Hematocrit 43.6 % (41.0-53.0); Hemoglobin 14.9 g/dL (13.5-17.5); Lymphocytes % (auto) 19.3 % (10.0-50.0); Mean Corpuscular Hemoglobin 30.5 pg (28.0-32.0); Mean Corpuscular Hgb Conc. 34.2 g/dL (32.0-36.0); Mean Corpuscular Volume 89.2 fL (80.0-100.0); Monocytes % (auto) 9.7 % (0.0-12.0); Neutrophils # (auto) 6.9 10 ^3/uL (1.6-8.6); Neutrophils % (auto) 67.4 % (37.0-80.0); Nucleated Red Blood Cells % 0.1 %; Platelet Count (auto) 268 10^3/uL (140-450); Red Blood Cells 4.89 10^6/uL (4.5-5.90); Red Cell Distribution Width 14.4 % (11.8-14.3); White Blood Cell 10.2 10^3/uL (4.4-10.8)
[2024-08-22 14:37] LABS: Chloride 102 mmol/L (98-107); Potassium 4.9 mmol/L (3.5-5.1); Sodium 137 mmol/L (136-145)
[2024-08-22 14:38] LABS: Anion Gap 6 (5-15); Calcium 9.6 mg/dL (8.7-10.4); Carbon Dioxide 29 mmol/L (20-31)
[2024-08-22 14:42] LABS: INR 0.99 (0.9-1.15); Partial Thromboplastin Time 27.2 SEC (24.5-34.5); Prothrombin Time 10.5 sec (9.3-11.8)
[2024-08-22 14:43] LABS: BUN/Creatinine Ratio 29.6 (10.0-20.0)
[2024-08-22 14:45] LABS: Blood Urea Nitrogen 47 mg/dL (9-23); Glucose 64 mg/dL (74-106)
[~2024-08-29] VITALS: Ht 180.3 cm; Wt 121.1 kg
[~2024-08-29 06:50] MED LIST changes: -ASPI325T6 PO; -CLOP75TA28 PO; -INSU1INJ21 SC; -POM; -POM PO; -POM SL; -POM TOP; -RANO500T2 PO; -SCOP1DIS9 TD; -SEMA2INJ2 SC
[2024-08-29] MEDS ORDERED: HEPARIN IN NS 1000Units/500mL 1,500 ML ONE (07:17)
[2024-08-29] MEDS ORDERED: IOHEXOL 350 MG/ML 100ML IJ ONE (07:17)
[2024-08-29] MEDS ORDERED: NITROGLYCERIN 0.4 MG SL TAB SL ONE (07:35)
[2024-08-29] MEDS ORDERED: LIDOCAINE 2%HCL (LOCAL ANESTH.) INJ 20ML MDV ONE (07:43)
[2024-08-29] MEDS ORDERED: NITROGLYCERIN 0.4 MG SL TAB SL PRN (07:45)
[2024-08-29] MEDS ORDERED: ANGIOMAX 250 MG VIAL IV ONE (08:00)
[2024-08-29] MEDS ORDERED: fentaNYL CITRATE 100 MCG/2 ML VL ONE (08:01)
[2024-08-29] MEDS ORDERED: MIDAZOLAM HCL 2MG/2ML 2ml VIAL (1mg/ml) ONE (08:01)
[2024-08-29] MEDS ORDERED: methylPREDNISolone SOD SUCC 125 MG/2 ML VL ONE (08:21)
[2024-08-29] MEDS ORDERED: diphenhdrAMINE HCL 50 MG/1 ML VL ONE (08:22)
[2024-08-29] MEDS ORDERED: FAMOTIDINE (10MG/ML) 2ML VL IV ONE (08:26)
--- NOTE | 2024-10-12 12:26 | DVHOP ---
DATE OF SURGERY: 08/29/2024 CARDIAC CATHETERIZATION REPORT PROCEDURES PERFORMED: * Selective left and right coronary angiography. * Ventriculogram. * Conscious sedation given by me. * Right iliac angiography. PROCEDURE: The patient was prepped and draped in sterile condition. 1% Xylocaine used to anesthetize the right groin. Using Cook needle, the right femoral artery was engaged with Seldinger technique. A 6-Liberian sheath in the right femoral artery. Using 6-Liberian JL4 catheter and a 6-Liberian JR4 catheter, selective left and right coronary angiography was performed. Using 6-Liberian pigtail catheter, ventriculogram was done. Total contrast used 60 mL of Omnipaque. Total fluoroscopy was 1 minute. RESULTS: * Left main was patent. * Left anterior descending artery previous site of stent placement with mild intimal irregularity in the segment of the stent, but no flow restrictive lesion was noted. * Circumflex artery nondominant vessel is occluded. * Right coronary artery dominant vessel was occluded chronically. Previous had a stent placement and the patient has left to right collaterals at this time. Ejection fraction is around 40%. The LVEDP of 15 mmHg with no gradient across the aortic valve. Thus, the patient collateralized to the left anterior descending artery to the RCA territory. The patient at this time continuing to experience chest pain even though there is no anatomy at this time conducive to any revascularization. Left anterior descending artery and the left main are patent. At this point, I would recommend the patient undergo a stress Cardiolite and late imaging reperfusion study should also be done. If patient has significant inferolateral reversibility, then the patient may benefit from bypass surgery. If there is no significant reversibility noted, then patient should then be maintained on medication. Exercise program should be instituted. Anti-anginal therapy should be initiated. At this time, I will continue to follow the patient. Kane Melo MD SA/CHRISTEN/NOLAN TID: [id number] RECEIPT: [id number]
== END 2024-08-29 11:20 | disposition home or self-care (01) ==
LOC: CATH 06:50
PROVIDERS: ATTEND Internal Medicine Cardiovascular Disease
DX: R07.9 Chest pain, unspecified (principal); I25.82 Chronic total occlusion of coronary artery; I25.118 Atherosclerotic heart disease of native coronary artery with other forms of angina pectoris; G47.30 Sleep apnea, unspecified; Z85.46 Personal history of malignant neoplasm of prostate; Z95.5 Presence of coronary angioplasty implant and graft; Z87.891 Personal history of nicotine dependence; Z91.041 Radiographic dye allergy status
CPT/HCPCS: 36415; 80048; 85025; 85610; 85730; 93458; C1760; C1894; J1644; J2250; J2919; J3010; J7030; Q9967; 99152; J3490

== ENCOUNTER → 2024-09-18 | Outpatient (CLI) | payer OTHER ==
--- NOTE | 2024-09-18 12:17 | DVH ---
XY CHEST TWO VIEWS ROUTINE CLINICAL HISTORY: SOB COMPARISON: CHEST TWO VIEWS ROUTINE on DOS: 08/05/20 TECHNIQUE: Frontal and lateral view of the chest was obtained FINDINGS: Lines and Tubes: None Lungs: No focal consolidation. Pleura: No effusion. No pneumothorax. Cardiomediastinal contours: Unremarkable Bones: No acute osseous abnormality. IMPRESSION: No acute cardiopulmonary disease.
== END | disposition home or self-care (01) ==
LOC: Rad HDHVI 09:53
PROVIDERS: ATTEND Internal Medicine Cardiovascular Disease
DX: R06.02 Shortness of breath (principal)
CPT/HCPCS: 71046

== ENCOUNTER 2024-11-14 09:03 | Outpatient (CLI) | payer OTHER ==
[2024-11-14 09:18] VITALS: BP 121/62; PULSE 73; RESP 16; O2SAT 97
[2024-11-14 09:25] VITALS: BP 119/62; PULSE 72; RESP 16; O2SAT 97
--- NOTE | 2024-11-14 10:10 | DVH ---
EXAM: XY CHEST TWO VIEWS ROUTINE CLINICAL HISTORY: Pain. COMPARISON: XY CHEST TWO VIEWS ROUTINE on DOS: 09/18/24, CHEST TWO VIEWS ROUTINE on DOS: 08/05/20 TECHNIQUE: Frontal and lateral view of the chest was obtained FINDINGS: Lines and Tubes: None Lungs: No focal consolidation. Pleura: No effusion. No pneumothorax. Cardiomediastinal contours: Unremarkable Bones: No acute osseous abnormality. IMPRESSION: No acute cardiopulmonary disease.
[2024-11-14] MEDS ORDERED: FEXO-140 PO (15:03)
[2024-11-14] MEDS ORDERED: POM PO (15:03)
[2024-11-14] MEDS ORDERED: INSU100I61 SC (15:03)
[2024-11-14] MEDS ORDERED: PANT40TA2 PO (15:03)
[2024-11-14] MEDS ORDERED: POLY335015 PO (15:03)
[2024-11-14] MEDS ORDERED: GABA-1308 PO (15:03)
== END 2024-11-14 17:00 | disposition home or self-care (01) ==
LOC: Rad HDHVI 09:03
PROVIDERS: ATTEND Internal Medicine Cardiovascular Disease
DX: Z01.818 Encounter for other preprocedural examination (principal); I65.21 Occlusion and stenosis of right carotid artery; R07.9 Chest pain, unspecified
CPT/HCPCS: 71046; 93005; G0463

== ENCOUNTER 2024-11-16 08:20 | Day surgery (SDC) | payer OTHER ==
[2024-11-14 11:09] LABS: Basophils # (auto) 0.1 10 ^3/uL (0-0.2); Basophils % (auto) 0.9 % (0.0-2.0); Eosinophils # (auto) 0.2 10 ^3/uL (0-0.8); Eosinophils % (auto) 2.2 % (0.0-7.0); Hematocrit 46.5 % (41.0-53.0); Hemoglobin 15.6 g/dL (13.5-17.5); Lymphocytes # (auto) 1.5 10 ^3/uL (0.4-5.4); Lymphocytes % (auto) 17.9 % (10.0-50.0); Mean Corpuscular Hemoglobin 29.3 pg (28.0-32.0); Mean Corpuscular Hgb Conc. 33.7 g/dL (32.0-36.0); Mean Corpuscular Volume 87.1 fL (80.0-100.0); Monocytes # (auto) 0.9 10 ^3/uL (0-1.3); Monocytes % (auto) 11.4 % (0.0-12.0); Neutrophils # (auto) 5.7 10 ^3/uL (1.6-8.6); Neutrophils % (auto) 67.6 % (37.0-80.0); Nucleated Red Blood Cells % 0.1 %; Platelet Count (auto) 197 10^3/uL (140-450); Red Blood Cells 5.34 10^6/uL (4.5-5.90); White Blood Cell 8.4 10^3/uL (4.4-10.8)
[2024-11-14 11:33] LABS: Chloride 104 mmol/L (98-107); INR 1.02 (0.9-1.15); Partial Thromboplastin Time 28.2 SEC (24.5-34.5); Potassium 4.2 mmol/L (3.5-5.1); Prothrombin Time 10.8 sec (9.3-11.8); Sodium 141 mmol/L (136-145)
[2024-11-14 11:34] LABS: Anion Gap 9 (5-15); Carbon Dioxide 28 mmol/L (20-31)
[2024-11-14 11:35] LABS: Calcium 10.3 mg/dL (8.7-10.4)
[2024-11-14 11:39] LABS: BUN/Creatinine Ratio 31.3 (10.0-20.0)
[2024-11-14 11:41] LABS: Blood Urea Nitrogen 40 mg/dL (9-23); Glucose 108 mg/dL (74-106)
[2024-11-16] VITALS (8 sets, daily range): BP systolic 117–130; BP diastolic 71–78; PULSE 79–88; RESP 12–20; TEMP 97.5; O2SAT 92–97
[~2024-11-16] VITALS: Ht 180.3 cm; Wt 118.8 kg
[~2024-11-16 08:20] MED LIST changes: -DOCU-94 PO; -DULA0.5I SC; -ENAL1TAB42 PO; +FEXO-140 PO; +GABA-1308 PO; +INSU100I61 SC; -INSU1INJ30 SC; +PANT40TA2 PO; +POLY335015 PO; +POM PO; -VITATAB PO
[2024-11-16] MEDS: IOHEXOL 350 MG/ML 100ML IJ ONE (09:57)
[2024-11-16] MEDS: MIDAZOLAM HCL 2MG/2ML 2ml VIAL (1mg/ml) ONE (09:58)
[2024-11-16] MEDS: LIDOCAINE 2%HCL (LOCAL ANESTH.) INJ 20ML MDV ONE (09:58)
[2024-11-16] MEDS: fentaNYL CITRATE 100 MCG/2 ML VL ONE (09:58)
[2024-11-16] MEDS: SODIUM CHL 0.9% 50 ML ONE ×2 (09:58→11:20)
[2024-11-16] MEDS: ANGIOMAX 250 MG VIAL IV ONE ×2 (09:58→11:20)
[2024-11-16] MEDS: methylPREDNISolone SOD SUCC 125 MG/2 ML VL ONE (10:04)
[2024-11-16] MEDS: FUROSEMIDE 20 MG/2 ML VIAL ONE (11:20)
[2024-11-16] MEDS: TICAGRELOR 90 MG TAB ONE (11:20)
--- NOTE | 2024-11-16 13:17 | DVHHP ---
ADMIT DATE: 11/16/2024 HISTORY OF PRESENT ILLNESS: The patient who is 74, history of coronary artery disease, ischemic cardiomyopathy. The patient's circumflex is occluded nondominant. RCA is occluded with bridging collaterals from the left. The patient has two stents placed in the left anterior descending artery extending into the left main. I did angiogram approximately a month and a half ago and LAD appears patent, but even though there was a haziness consistent with stent placement. Per patient, continuing to have chest pain even with minimal exertion, relieved by nitroglycerin. Therefore, at this time, elected to go for the angiogram. This time, intravascular ultrasound to be done to see whether that will be beneficial to the patient. He is already on nitroglycerin, he is on [place], all vasodilatory medication. Yet, despite the medication, he is continuing to require sublingual nitroglycerin. PERTINENT MEDICAL HISTORY: Significant for hypertension, diabetes, diabetic neuropathy, vasculopathy, nephropathy. History of morbid obesity at this time and also history of hypertension, hyperlipidemia. No fever, chills. No melena, hematochezia. No hematemesis, hemoptysis. He denies any history of syncope. No CVA in the past. He does get shortness of breath with the chest pain, relieved with nitroglycerin. He has been taking three to four nitroglycerins on a daily basis, even with minimal exertion. PHYSICAL EXAMINATION: VITAL SIGNS: Blood pressure is 100/70, pulse of 70, O2 saturation 98% on room air. HEENT: Pupils are reactive. Fundoscopic exam shows no AV nicking, no exudates, no papilledema. Sclerae anicteric. NECK: No JVD appreciated. Carotid pulses are 2+ symmetrical. No cervical adenopathy. No supraclavicular adenopathy. PULMONARY: Clear to auscultation. CARDIOVASCULAR: Regular rate without S3, without S4. PMI is not displaced. ABDOMEN: Obese, unable to appreciate organomegaly. EXTREMITIES: 1+ pulses bilaterally. NEUROLOGIC: The patient is intact. ASSESSMENT AND PLAN: Thus, the patient with recurrent chest pain. He has only the left anterior descending artery that has been stented previously, now is the only artery that is supplying the entire myocardium. Circumflex is a nondominant vessel, occluded and RCA has been chronically occluded for many years with bridging collaterals from the left. The patient is now to undergo coronary angiography with intravascular ultrasound to determine whether there is any in-stent restenosis that is not visible by angiography. We will make further recommendations after. Kane Melo MD SA/ERENDIRA/KENNEDI TID: [id number] RECEIPT: [id number]
--- NOTE | 2024-11-16 15:07 | DVHDS ---
DATE OF DISCHARGE: 11/16/2024 HOSPITAL COURSE: The patient underwent successful angioplasty with stent placement of the left anterior descending artery and left main with thrombectomy and intravascular ultrasound imaging. The patient is clinically stable to be discharged home. Follow up with me in 1 week. Stable at the time of discharge. ACTIVITY: As instructed. DIET: 2-gram sodium, 1800-calorie ADA diet. The patient definitely has to should be considered. I will continue to follow the patient. Kane Melo MD SA/ARTI/ISHAAN TID: [id number] RECEIPT: [id number]
--- NOTE | 2024-11-28 08:16 | DVHOP ---
DATE OF SURGERY: 11/16/2024 PROCEDURES PERFORMED: * Selective left and right coronary angiography, ventriculogram. * Conscious sedation. * Intravascular ultrasound of left anterior descending artery and left main. * Thrombectomy shockwave of the left anterior descending artery and left main with a 4.0 x 13 mm shockwave thrombectomy catheter. * Status post angioplasty with 2 sequential stents 4.0 x 38 and a 4.0 x 22 mm stent, extending from the proximal left anterior descending artery into the ostial left main. COMPLICATIONS: There were no complications. The patient tolerated the procedure well. RESULTS: * Left main had in-stent restenosis of about 40%. * In the mid to proximal LAD, there is also a 70% narrowing of the in-stent restenosis. Left anterior descending artery distal to the stent mild diffuse disease without any discrete lesions. Circumflex artery non-dominant vessel less than 2 mm in size is occluded. * Right coronary artery is chronically occluded with bridging collaterals from the left. * Ejection fraction is around 45% with an LVEDP of 18 mmHg. Thus, the patient underwent angioplasty with stent placement on the left anterior descending artery and left main, with intravascular ultrasound imaging as well as shockwave thrombectomy, angioplasty of the entire length of the left main and proximal segment of the left anterior descending artery. Kane Melo MD SA/PAULINE/ISHAAN TID: [id number] RECEIPT: [id number]
== END 2024-11-16 13:30 | disposition home or self-care (01) ==
LOC: CATH 08:20
PROVIDERS: ATTEND Internal Medicine Cardiovascular Disease
DX: R07.9 Chest pain, unspecified (principal); I25.10 Atherosclerotic heart disease of native coronary artery without angina pectoris; E11.40 Type 2 diabetes mellitus with diabetic neuropathy, unspecified; E78.5 Hyperlipidemia, unspecified; I10 Essential (primary) hypertension; E11.21 Type 2 diabetes mellitus with diabetic nephropathy; E66.01 Morbid (severe) obesity due to excess calories; I25.5 Ischemic cardiomyopathy; Z95.5 Presence of coronary angioplasty implant and graft; Z79.899 Other long term (current) drug therapy; Z98.890 Other specified postprocedural states
CPT/HCPCS: 0523T; 36415; 80048; 85025; 85610; 85730; 92972; 92973; 93458; C1725; C1753; C1760; C1769; C1874; C1887; C1894; C9600; J0583; J1644; J1940; J2250; J2919; J3010; J7030; Q9967; 92978; 92979; 99152; 99153

== ENCOUNTER 2024-11-27 13:10 | Outpatient (CLI) | payer OTHER ==
[2024-11-27 15:04] VITALS: BP_SYST 134; BP_DIAS 78; BP_DIAS 79; PULSE 73; PULSE 74
== END 2024-11-27 17:00 | disposition home or self-care (01) ==
LOC: CHF HDHVI 13:10
PROVIDERS: ATTEND Internal Medicine Cardiovascular Disease
DX: I25.118 Atherosclerotic heart disease of native coronary artery with other forms of angina pectoris (principal); I50.33 Acute on chronic diastolic (congestive) heart failure; E11.9 Type 2 diabetes mellitus without complications; Z98.61 Coronary angioplasty status
CPT/HCPCS: G0166

== ENCOUNTER 2024-12-04 12:56 | Outpatient (CLI) | payer OTHER ==
[2024-12-04 15:10] VITALS: BP 121/64; PULSE 76
[2024-12-04 15:11] VITALS: BP 117/76; PULSE 76
== END 2024-12-04 17:00 | disposition home or self-care (01) ==
LOC: CHF HDHVI 12:56
PROVIDERS: ATTEND Internal Medicine Cardiovascular Disease
DX: I25.118 Atherosclerotic heart disease of native coronary artery with other forms of angina pectoris (principal); I50.33 Acute on chronic diastolic (congestive) heart failure; Z98.61 Coronary angioplasty status
CPT/HCPCS: G0166

== ENCOUNTER 2024-12-05 13:37 | Outpatient (CLI) | payer OTHER ==
[2024-12-05 14:57] VITALS: BP 119/69; PULSE 63
[2024-12-05 14:58] VITALS: BP 120/64; PULSE 68
== END 2024-12-05 17:00 | disposition home or self-care (01) ==
LOC: CHF HDHVI 13:37
PROVIDERS: ATTEND Internal Medicine Cardiovascular Disease
DX: I25.118 Atherosclerotic heart disease of native coronary artery with other forms of angina pectoris (principal); I50.23 Acute on chronic systolic (congestive) heart failure; E11.8 Type 2 diabetes mellitus with unspecified complications; Z98.61 Coronary angioplasty status
CPT/HCPCS: G0166

== ENCOUNTER 2024-12-06 12:58 | Outpatient (CLI) | payer OTHER ==
[2024-12-06 15:38] VITALS: BP_SYST 122; BP_SYST 126; BP_DIAS 79; BP_DIAS 81; PULSE 58; PULSE 76
== END 2024-12-06 17:00 | disposition home or self-care (01) ==
LOC: CHF HDHVI 12:58
PROVIDERS: ATTEND Internal Medicine Cardiovascular Disease
DX: I25.118 Atherosclerotic heart disease of native coronary artery with other forms of angina pectoris (principal); I50.23 Acute on chronic systolic (congestive) heart failure; Z86.39 Personal history of other endocrine, nutritional and metabolic disease; Z98.61 Coronary angioplasty status
CPT/HCPCS: G0166

== ENCOUNTER 2024-12-07 12:00 | Outpatient (CLI) | payer OTHER ==
[2024-12-07 13:12] VITALS: BP_SYST 122; BP_DIAS 69; BP_DIAS 80; PULSE 71; PULSE 75
[2024-12-07 13:13] VITALS: BP 122/80; PULSE 75
[2024-12-07 13:17] VITALS: BP 122/80; PULSE 75
== END 2024-12-07 17:00 | disposition home or self-care (01) ==
LOC: CHF HDHVI 12:00
PROVIDERS: ATTEND Internal Medicine Cardiovascular Disease
DX: I25.118 Atherosclerotic heart disease of native coronary artery with other forms of angina pectoris (principal); I50.23 Acute on chronic systolic (congestive) heart failure; E11.9 Type 2 diabetes mellitus without complications; Z98.61 Coronary angioplasty status
CPT/HCPCS: G0166

== ENCOUNTER 2024-12-11 12:59 | Outpatient (CLI) | payer OTHER ==
[2024-12-11 14:11] VITALS: BP_SYST 119; BP_SYST 124; BP_DIAS 65; BP_DIAS 80; PULSE 62; PULSE 68
== END 2024-12-11 17:00 | disposition home or self-care (01) ==
LOC: CHF HDHVI 12:59
PROVIDERS: ATTEND Internal Medicine Cardiovascular Disease
DX: I25.118 Atherosclerotic heart disease of native coronary artery with other forms of angina pectoris (principal); I50.23 Acute on chronic systolic (congestive) heart failure; E11.9 Type 2 diabetes mellitus without complications; Z98.61 Coronary angioplasty status
CPT/HCPCS: G0166

== ENCOUNTER 2024-12-12 13:03 | Outpatient (CLI) | payer OTHER ==
[2024-12-12 14:06] VITALS: BP 127/80; PULSE 62
[2024-12-12 14:07] VITALS: BP 119/70; PULSE 65
== END 2024-12-12 17:53 | disposition home or self-care (01) ==
LOC: CHF HDHVI 13:03
PROVIDERS: ATTEND Internal Medicine Cardiovascular Disease
DX: I25.118 Atherosclerotic heart disease of native coronary artery with other forms of angina pectoris (principal); I50.23 Acute on chronic systolic (congestive) heart failure; E11.9 Type 2 diabetes mellitus without complications; Z98.61 Coronary angioplasty status
CPT/HCPCS: G0166

== ENCOUNTER → 2024-12-13 | Outpatient (CLI) | payer OTHER ==
[2024-12-13 14:41] VITALS: BP 138/76; PULSE 68
[2024-12-13 14:42] VITALS: BP 119/70; PULSE 73
== END | disposition home or self-care (01) ==
LOC: CHF HDHVI 13:05
PROVIDERS: ATTEND Internal Medicine Cardiovascular Disease
DX: I25.118 Atherosclerotic heart disease of native coronary artery with other forms of angina pectoris (principal); I50.23 Acute on chronic systolic (congestive) heart failure; E11.9 Type 2 diabetes mellitus without complications; Z98.61 Coronary angioplasty status
CPT/HCPCS: G0166

== ENCOUNTER → 2024-12-14 | Outpatient (CLI) | payer OTHER ==
[2024-12-14 14:07] VITALS: BP_SYST 123; BP_SYST 127; BP_DIAS 69; BP_DIAS 82; PULSE 70; PULSE 72
== END | disposition home or self-care (01) ==
LOC: CHF HDHVI 12:55
PROVIDERS: ATTEND Internal Medicine Cardiovascular Disease
DX: I25.118 Atherosclerotic heart disease of native coronary artery with other forms of angina pectoris (principal); I50.23 Acute on chronic systolic (congestive) heart failure; E11.9 Type 2 diabetes mellitus without complications; Z98.61 Coronary angioplasty status
CPT/HCPCS: G0166

== ENCOUNTER 2024-12-15 14:49 | Outpatient (CLI) | payer OTHER ==
[2024-12-15 15:40] VITALS: BP 133/81; PULSE 70
[2024-12-15 16:02] VITALS: BP 131/80; PULSE 75
== END 2024-12-15 17:00 | disposition home or self-care (01) ==
LOC: CHF HDHVI 14:49
PROVIDERS: ATTEND Internal Medicine Cardiovascular Disease
DX: I25.118 Atherosclerotic heart disease of native coronary artery with other forms of angina pectoris (principal); I50.23 Acute on chronic systolic (congestive) heart failure; E11.9 Type 2 diabetes mellitus without complications; Z98.61 Coronary angioplasty status
CPT/HCPCS: G0166

== ENCOUNTER 2024-12-18 12:57 | Outpatient (CLI) | payer OTHER ==
[2024-12-18 13:47] VITALS: BP 128/86; PULSE 63
[2024-12-18 13:48] VITALS: BP 128/86; PULSE 63
[2024-12-18 13:57] VITALS: BP 122/68; PULSE 70
== END 2024-12-18 17:00 | disposition home or self-care (01) ==
LOC: CHF HDHVI 12:57
PROVIDERS: ATTEND Internal Medicine Cardiovascular Disease
DX: I25.118 Atherosclerotic heart disease of native coronary artery with other forms of angina pectoris (principal); I50.23 Acute on chronic systolic (congestive) heart failure; E11.9 Type 2 diabetes mellitus without complications; Z98.61 Coronary angioplasty status
CPT/HCPCS: G0166

== ENCOUNTER 2024-12-19 13:12 | Outpatient (CLI) | payer OTHER ==
[2024-12-19 14:31] VITALS: BP_SYST 124; BP_SYST 129; BP_DIAS 70; BP_DIAS 80; PULSE 61; PULSE 74
== END 2024-12-19 17:00 | disposition home or self-care (01) ==
LOC: CHF HDHVI 13:12
PROVIDERS: ATTEND Internal Medicine Cardiovascular Disease
DX: I25.708 Atherosclerosis of coronary artery bypass graft(s), unspecified, with other forms of angina pectoris (principal); I50.23 Acute on chronic systolic (congestive) heart failure; E11.9 Type 2 diabetes mellitus without complications; Z98.61 Coronary angioplasty status
CPT/HCPCS: G0166

== ENCOUNTER 2024-12-20 12:59 | Outpatient (CLI) | payer OTHER ==
[2024-12-20 15:13] VITALS: BP_SYST 129; BP_SYST 132; BP_DIAS 79; BP_DIAS 80; PULSE 69; PULSE 77
== END 2024-12-20 17:00 | disposition home or self-care (01) ==
LOC: CHF HDHVI 12:59
PROVIDERS: ATTEND Internal Medicine Cardiovascular Disease
DX: I25.118 Atherosclerotic heart disease of native coronary artery with other forms of angina pectoris (principal); I50.23 Acute on chronic systolic (congestive) heart failure; E11.9 Type 2 diabetes mellitus without complications; Z98.61 Coronary angioplasty status
CPT/HCPCS: G0166

== ENCOUNTER 2024-12-21 12:51 | Outpatient (CLI) | payer OTHER ==
[2024-12-21 15:04] VITALS: BP 130/84; PULSE 63
[2024-12-21 15:07] VITALS: BP 122/67; PULSE 69
== END 2024-12-21 17:00 | disposition home or self-care (01) ==
LOC: CHF HDHVI 12:51
PROVIDERS: ATTEND Internal Medicine Cardiovascular Disease
DX: I25.118 Atherosclerotic heart disease of native coronary artery with other forms of angina pectoris (principal); I50.23 Acute on chronic systolic (congestive) heart failure; E11.9 Type 2 diabetes mellitus without complications; Z98.61 Coronary angioplasty status
CPT/HCPCS: G0166

== ENCOUNTER 2024-12-22 13:35 | Outpatient (CLI) | payer OTHER ==
[2024-12-22 15:01] VITALS: BP 119/70; PULSE 67
[2024-12-22 15:02] VITALS: BP 129/86; PULSE 74
== END 2024-12-22 17:00 | disposition home or self-care (01) ==
LOC: CHF HDHVI 13:35
PROVIDERS: ATTEND Internal Medicine Cardiovascular Disease
DX: I25.118 Atherosclerotic heart disease of native coronary artery with other forms of angina pectoris (principal); I50.23 Acute on chronic systolic (congestive) heart failure; E11.9 Type 2 diabetes mellitus without complications; Z98.61 Coronary angioplasty status
CPT/HCPCS: G0166

== ENCOUNTER 2024-12-25 12:55 | Outpatient (CLI) | payer OTHER ==
[2024-12-25 14:33] VITALS: BP 121/80; PULSE 59
[2024-12-25 14:34] VITALS: BP 120/64; PULSE 69
== END 2024-12-25 17:00 | disposition home or self-care (01) ==
LOC: CHF HDHVI 12:55
PROVIDERS: ATTEND Internal Medicine Cardiovascular Disease
DX: I25.118 Atherosclerotic heart disease of native coronary artery with other forms of angina pectoris (principal); I50.23 Acute on chronic systolic (congestive) heart failure; E11.8 Type 2 diabetes mellitus with unspecified complications; Z98.61 Coronary angioplasty status
CPT/HCPCS: G0166

== ENCOUNTER 2024-12-26 12:54 | Outpatient (CLI) | payer OTHER ==
[2024-12-26 14:50] VITALS: BP_SYST 129; BP_SYST 131; BP_DIAS 70; BP_DIAS 71; PULSE 60; PULSE 66
== END 2024-12-26 17:00 | disposition home or self-care (01) ==
LOC: CHF HDHVI 12:54
PROVIDERS: ATTEND Internal Medicine Cardiovascular Disease
DX: I25.118 Atherosclerotic heart disease of native coronary artery with other forms of angina pectoris (principal); I50.23 Acute on chronic systolic (congestive) heart failure; E11.8 Type 2 diabetes mellitus with unspecified complications; Z98.61 Coronary angioplasty status
CPT/HCPCS: G0166

== ENCOUNTER 2024-12-27 14:59 | Outpatient (CLI) | payer OTHER ==
[2024-12-27 16:18] VITALS: BP 133/70; PULSE 61
[2024-12-27 16:19] VITALS: BP 122/68; PULSE 68
== END 2024-12-27 17:00 | disposition home or self-care (01) ==
LOC: CHF HDHVI 14:59
PROVIDERS: ATTEND Internal Medicine Cardiovascular Disease
DX: I25.118 Atherosclerotic heart disease of native coronary artery with other forms of angina pectoris (principal); I50.23 Acute on chronic systolic (congestive) heart failure; E11.8 Type 2 diabetes mellitus with unspecified complications; Z98.61 Coronary angioplasty status
CPT/HCPCS: G0166

== ENCOUNTER 2024-12-28 14:50 | Outpatient (CLI) | payer OTHER ==
[2024-12-28 15:45] VITALS: BP 124/79; PULSE 65
[2024-12-28 15:57] VITALS: BP 131/81; PULSE 73
== END 2024-12-28 17:00 | disposition home or self-care (01) ==
LOC: CHF HDHVI 14:50
PROVIDERS: ATTEND Internal Medicine Cardiovascular Disease
DX: I25.118 Atherosclerotic heart disease of native coronary artery with other forms of angina pectoris (principal); I50.23 Acute on chronic systolic (congestive) heart failure; E11.9 Type 2 diabetes mellitus without complications; Z98.61 Coronary angioplasty status
CPT/HCPCS: G0166

== ENCOUNTER 2024-12-29 13:23 | Outpatient (CLI) | payer OTHER ==
[2024-12-29 14:41] VITALS: BP_SYST 118; BP_SYST 124; BP_DIAS 71; BP_DIAS 74; PULSE 60; PULSE 71
== END 2024-12-29 17:00 | disposition home or self-care (01) ==
LOC: CHF HDHVI 13:23
PROVIDERS: ATTEND Internal Medicine Cardiovascular Disease
DX: I25.118 Atherosclerotic heart disease of native coronary artery with other forms of angina pectoris (principal); I50.23 Acute on chronic systolic (congestive) heart failure; E11.9 Type 2 diabetes mellitus without complications; Z98.61 Coronary angioplasty status
CPT/HCPCS: G0166

== ENCOUNTER → 2025-01-02 | Outpatient (CLI) | payer OTHER ==
[2025-01-02 14:24] VITALS: BP 123/82; PULSE 59
[2025-01-02 14:25] VITALS: BP 119/70; PULSE 64
== END | disposition home or self-care (01) ==
LOC: CHF HDHVI 12:55
PROVIDERS: ATTEND Internal Medicine Cardiovascular Disease
DX: I25.118 Atherosclerotic heart disease of native coronary artery with other forms of angina pectoris (principal); I50.23 Acute on chronic systolic (congestive) heart failure; E11.9 Type 2 diabetes mellitus without complications; Z98.61 Coronary angioplasty status
CPT/HCPCS: G0166

== ENCOUNTER 2025-01-04 12:55 | Outpatient (CLI) | payer OTHER ==
[2025-01-04 14:39] VITALS: BP_SYST 126; BP_SYST 132; BP_DIAS 68; BP_DIAS 70; PULSE 61; PULSE 65
== END 2025-01-04 17:00 | disposition home or self-care (01) ==
LOC: CHF HDHVI 12:55
PROVIDERS: ATTEND Internal Medicine Cardiovascular Disease
DX: I25.118 Atherosclerotic heart disease of native coronary artery with other forms of angina pectoris (principal); I50.23 Acute on chronic systolic (congestive) heart failure; E11.9 Type 2 diabetes mellitus without complications; Z98.61 Coronary angioplasty status
CPT/HCPCS: G0166

== ENCOUNTER 2025-01-05 13:13 | Outpatient (CLI) | payer OTHER ==
[2025-01-05 14:28] VITALS: BP_SYST 129; BP_DIAS 68; BP_DIAS 69; PULSE 65; PULSE 68
== END 2025-01-05 17:00 | disposition home or self-care (01) ==
LOC: CHF HDHVI 13:13
PROVIDERS: ATTEND Internal Medicine Cardiovascular Disease
DX: I25.118 Atherosclerotic heart disease of native coronary artery with other forms of angina pectoris (principal); I50.23 Acute on chronic systolic (congestive) heart failure; E11.9 Type 2 diabetes mellitus without complications; Z98.61 Coronary angioplasty status; Z86.73 Personal history of transient ischemic attack (TIA), and cerebral infarction without residual deficits
CPT/HCPCS: G0166

== ENCOUNTER 2025-01-08 13:02 | Outpatient (CLI) | payer OTHER ==
[2025-01-08 14:45] VITALS: BP 129/70; PULSE 62
[2025-01-08 14:46] VITALS: BP 119/68; PULSE 63
[2025-01-08 14:53] VITALS: BP 126/66; PULSE 65
[2025-01-08 14:54] VITALS: BP 117/67; PULSE 63
== END 2025-01-08 17:00 | disposition home or self-care (01) ==
LOC: CHF HDHVI 13:02
PROVIDERS: ATTEND Internal Medicine Cardiovascular Disease
DX: I25.118 Atherosclerotic heart disease of native coronary artery with other forms of angina pectoris (principal); I50.23 Acute on chronic systolic (congestive) heart failure; E11.9 Type 2 diabetes mellitus without complications; Z98.61 Coronary angioplasty status; Z86.73 Personal history of transient ischemic attack (TIA), and cerebral infarction without residual deficits
CPT/HCPCS: G0166 ×2

== ENCOUNTER 2025-01-09 12:52 | Outpatient (CLI) | payer OTHER ==
[2025-01-09 13:49] VITALS: BP 120/69; PULSE 57
[2025-01-09 14:02] VITALS: BP 118/63; PULSE 61
== END 2025-01-09 17:00 | disposition home or self-care (01) ==
LOC: CHF HDHVI 12:52
PROVIDERS: ATTEND Internal Medicine Cardiovascular Disease
DX: I25.118 Atherosclerotic heart disease of native coronary artery with other forms of angina pectoris (principal); I50.23 Acute on chronic systolic (congestive) heart failure; E11.9 Type 2 diabetes mellitus without complications; Z98.61 Coronary angioplasty status
CPT/HCPCS: G0166

== ENCOUNTER 2025-01-11 13:12 | Outpatient (CLI) | payer OTHER ==
[2025-01-11 14:15] VITALS: BP_SYST 128; BP_SYST 130; BP_DIAS 71; BP_DIAS 80; PULSE 58; PULSE 80
== END 2025-01-11 17:00 | disposition home or self-care (01) ==
LOC: CHF HDHVI 13:12
PROVIDERS: ATTEND Internal Medicine Cardiovascular Disease
DX: I25.118 Atherosclerotic heart disease of native coronary artery with other forms of angina pectoris (principal); I50.23 Acute on chronic systolic (congestive) heart failure; E11.9 Type 2 diabetes mellitus without complications; Z98.61 Coronary angioplasty status
CPT/HCPCS: G0166

== ENCOUNTER 2025-01-12 12:52 | Outpatient (CLI) | payer OTHER ==
[2025-01-12 14:06] VITALS: BP_SYST 128; BP_SYST 137; BP_DIAS 69; BP_DIAS 82; PULSE 67; PULSE 71
== END 2025-01-12 17:00 | disposition home or self-care (01) ==
LOC: CHF HDHVI 12:52
PROVIDERS: ATTEND Internal Medicine Cardiovascular Disease
DX: I25.118 Atherosclerotic heart disease of native coronary artery with other forms of angina pectoris (principal); I50.23 Acute on chronic systolic (congestive) heart failure
CPT/HCPCS: G0166

== ENCOUNTER 2025-01-15 12:57 | Outpatient (CLI) | payer OTHER ==
[2025-01-15 14:50] VITALS: BP_SYST 122; BP_SYST 139; BP_DIAS 71; BP_DIAS 75; PULSE 64; PULSE 65
== END 2025-01-15 17:00 | disposition home or self-care (01) ==
LOC: CHF HDHVI 12:57
PROVIDERS: ATTEND Internal Medicine Cardiovascular Disease
DX: I25.118 Atherosclerotic heart disease of native coronary artery with other forms of angina pectoris (principal); I50.23 Acute on chronic systolic (congestive) heart failure; E11.9 Type 2 diabetes mellitus without complications; Z98.61 Coronary angioplasty status
CPT/HCPCS: G0166

== ENCOUNTER 2025-01-16 12:53 | Outpatient (CLI) | payer OTHER ==
[2025-01-16 13:54] VITALS: BP 124/68; PULSE 54
[2025-01-16 14:13] VITALS: BP 119/67; PULSE 60
== END 2025-01-16 17:00 | disposition home or self-care (01) ==
LOC: CHF HDHVI 12:53
PROVIDERS: ATTEND Internal Medicine Cardiovascular Disease
DX: I25.118 Atherosclerotic heart disease of native coronary artery with other forms of angina pectoris (principal); I50.23 Acute on chronic systolic (congestive) heart failure; E11.9 Type 2 diabetes mellitus without complications; Z98.61 Coronary angioplasty status
CPT/HCPCS: G0166

== ENCOUNTER 2025-01-17 09:50 | Outpatient (CLI) | payer OTHER ==
[2025-01-17 15:27] VITALS: BP 126/80; PULSE 66
[2025-01-17 15:28] VITALS: BP 140/72; PULSE 68
== END 2025-02-26 17:00 | disposition home or self-care (01) ==
LOC: CHF HDHVI 09:50
PROVIDERS: ATTEND Internal Medicine Cardiovascular Disease
DX: I25.118 Atherosclerotic heart disease of native coronary artery with other forms of angina pectoris (principal); I50.23 Acute on chronic systolic (congestive) heart failure; E11.9 Type 2 diabetes mellitus without complications; Z98.61 Coronary angioplasty status
CPT/HCPCS: G0166